=== PATIENT | male | born 1970 | race Caucasian/White ===

== ENCOUNTER 2017-09-06 12:14 | Emergency (ER) | payer OTHER ==
[~2017-09-06] VITALS: Ht 175.3 cm; Wt 129.3 kg
[~2017-09-06 12:14] MED LIST: ANTIPSYCHOTIC PO; Benadryl 50 mg50 MG PO; Cymbalta20 MG; Cymbalta60 MG PO; DESI25; DIVA500EC; DULOXETINE HCL60 MG PO; FENO54 PO; GUAN1 PO; HYDACE5 PO; HYDACE5325 PO; IBUP800 PO; LEVSOD75 PO; LORA1; LOVA20 PO; PANT40 PO; PERP2; PERP8 PO; PROM25 PO; THYR60 PO; TOPI25 PO; Ultram50 MG PO; ZIPR80; [UNRECOGNIZED DRUG - REMARK]
[2017-09-06] MEDS ORDERED: Advair Hfa 230-12 GM (12:41)
[2017-09-06] MEDS ORDERED: MOMENI (12:42)
[2017-09-06] MEDS ORDERED: Benztropine Mesy1 MG (12:42)
[2017-09-06] MEDS ORDERED: HYDPAM50 PO (12:42)
[2017-09-06] MEDS ORDERED: [UNRECOGNIZED DRUG - CODE] (12:42)
[2017-09-06] MEDS ORDERED: ALBU90OI61 INH (12:42)
[2017-09-06] MEDS ORDERED: BUPR75 (12:43)
[2017-09-06 13:05] LABS: BASOPHILS ABSOLUTE AUTO 0.03 K/mm3 (0.00-0.23); BASOPHILS PERCENT AUTO 0 % (0-2); EOSINOPHILS ABSOLUTE AUTO 0.12 K/mm3 (0.00-0.68); EOSINOPHILS PERCENT AUTO 2 % (0-6); Hematocrit 43.8 % (37.0-53.0); Hemoglobin 14.7 g/dL (13.5-17.5); IMMATURE GRAN ABSOLUTE AUTO 0.01 K/mm3 (0.00-0.10); IMMATURE GRAN PERCENT AUTO 0 % (0-1); LYMPHOCYTES ABSOLUTE AUTO 2.02 K/mm3 (0.84-5.20); LYMPHOCYTES PERCENT AUTO 27 % (21-46); MONOCYTES ABSOLUTE AUTO 0.63 K/mm3 (0.16-1.47); MONOCYTES PERCENT AUTO 8 % (4-13); Mean Corpuscular HGB 30.5 pg (26.0-34.0); Mean Corpuscular HGB Conc 33.6 g/dL (31.5-36.5); Mean Corpuscular Volume 91 fL (80-100); NEUTROPHILS ABSOLUTE AUTO 4.73 K/mm3 (1.96-9.15); NEUTROPHILS PERCENT AUTO 63 % (41-73); Platelet Count 288 K/mm3 (150-400); RDW Standard Deviation 43.2 fL (35.1-46.3); Red Blood Cell Count 4.82 M/mm3 (4.30-5.90); White Blood Cell Count 7.54 K/mm3 (4.00-11.30)
[2017-09-06 13:25] LABS: Alanine Aminotransfer (ALT/SGP 22 U/L (12-78); Albumin, Blood 3.4 g/dL (3.4-5.0); Albumin/Globulin Ratio 0.8 (0.8-1.8); Alk Phos 64 U/L (50-136); Anion Gap 6 mmol/L (6-16); Aspartate Aminotrans (AST/SGOT 18 U/L (12-37); Bilirubin, Total 0.6 mg/dL (0.1-1.0); Blood Urea Nitrogen 7 mg/dL (8-24); Bun/Creatinine Ratio 7.6 (12.0-20.0); CO2, Blood 25 mmol/L (21-32); Calcium, Blood 8.6 mg/dL (8.5-10.1); Chloride, Blood 109 mmol/L (98-108); Creatinine, Blood 0.92 mg/dL (0.60-1.20); Glomerular Filtration Rate >60 (60-); Glucose, Blood 107 mg/dL (70-99); Potassium, Blood 4.1 mmol/L (3.5-5.5); Sodium, Blood 140 mmol/L (136-145); Total Protein, Blood 7.4 g/dL (6.4-8.2)
[2017-09-06] MEDS ORDERED: Bactrim 400-801 EACH PO (13:30)
[2017-09-06] MEDS ORDERED: CEPH500 PO (13:30)
[2017-09-06] MEDS ORDERED: Mupirocin22 GM TOP (13:30)
== END 2017-09-06 13:48 | disposition home or self-care (01) ==
LOC: ER 12:14
PROVIDERS: Emergency Medicine
DX: L03.114 Cellulitis of left upper limb (principal); F20.9 Schizophrenia, unspecified; F17.210 Nicotine dependence, cigarettes, uncomplicated; Z88.5 Allergy status to narcotic agent; Z79.899 Other long term (current) drug therapy
CPT/HCPCS: 80053; 85025; 99283

== ENCOUNTER → 2017-09-07 | Outpatient (CLI) | payer OTHER ==
[~2017-09-07] MED LIST changes: +ALBU90OI61 INH; +Advair Hfa 230-12 GM; +BUPR75; +Bactrim 400-801 EACH PO; +Benztropine Mesy1 MG; +CEPH500 PO; +HYDPAM50 PO; +MOMENI; +Mupirocin22 GM TOP; +[UNRECOGNIZED DRUG - CODE]
== END ==
LOC: LAB SRC 11:36 → LAB SHORT 11:36
DX: L02.512 Cutaneous abscess of left hand (principal)
CPT/HCPCS: 87070; 87075; 87077; 87147; 87186; 87205

== ENCOUNTER 2018-10-14 06:17 | Observation (INO) | payer OTHER ==
[~2018-10-14] VITALS: Ht 177.8 cm; Wt 132.4 kg
[~2018-10-14 06:17] MED LIST changes: -Advair Hfa 230-12 GM; +Advair Hfa 230-12 GM PO; -BUPR75; +BUPR75 PO; -Benztropine Mesy1 MG; +Benztropine Mesy1 MG PO; +THIO PO; -[UNRECOGNIZED DRUG - CODE]
[2018-10-14] MEDS ORDERED: SAPHRIS10 MG SL (06:44)
[2018-10-14 07:36] LABS: BASOPHILS ABSOLUTE AUTO 0.04 K/mm3 (0.00-0.23); BASOPHILS PERCENT AUTO 1 % (0-2); EOSINOPHILS ABSOLUTE AUTO 0.11 K/mm3 (0.00-0.68); EOSINOPHILS PERCENT AUTO 2 % (0-6); Hematocrit 46.8 % (37.0-53.0); Hemoglobin 15.7 g/dL (13.5-17.5); IMMATURE GRAN ABSOLUTE AUTO 0.03 K/mm3 (0.00-0.10); IMMATURE GRAN PERCENT AUTO 0 % (0-1); LYMPHOCYTES ABSOLUTE AUTO 2.06 K/mm3 (0.84-5.20); LYMPHOCYTES PERCENT AUTO 30 % (21-46); MONOCYTES ABSOLUTE AUTO 0.53 K/mm3 (0.16-1.47); MONOCYTES PERCENT AUTO 8 % (4-13); Mean Corpuscular HGB 30.6 pg (26.0-34.0); Mean Corpuscular HGB Conc 33.5 g/dL (31.5-36.5); Mean Corpuscular Volume 91 fL (80-100); Mean Platelet Volume 10.1 fL (9.1-12.4); NEUTROPHILS ABSOLUTE AUTO 4.08 K/mm3 (1.96-9.15); NEUTROPHILS PERCENT AUTO 60 % (41-73); Platelet Count 262 K/mm3 (150-400); RDW Coefficient Variation 13.9 % (11.7-14.2); RDW Standard Deviation 46.7 fL (35.1-46.3); Red Blood Cell Count 5.13 M/mm3 (4.30-5.90); White Blood Cell Count 6.85 K/mm3 (4.00-11.30)
[2018-10-14 07:39] LABS: U Amphetamine Screen DETECTED; U Barbituate Screen Not Detected; U Benzodiazapine Screen Not Detected; U Buprenorphine Screen Not Detected; U Cannabinoids Screen DETECTED; U Cocaine Screen Not Detected; U Methadone Screen Not Detected; U Methamphetamine Screen DETECTED; U Opiates Screen Not Detected; U Oxycodone Screen Not Detected; U Phencyclidine Screen Not Detected; U Propoxyphene Screen Not Detected
[2018-10-14 07:59] LABS: Alanine Aminotransfer (ALT/SGP 34 U/L (12-78); Albumin/Globulin Ratio 1.1 (0.8-1.8); Alk Phos 59 U/L (50-136); Anion Gap 7 mmol/L (6-16); Aspartate Aminotrans (AST/SGOT 28 U/L (12-37); Bilirubin, Total 0.5 mg/dL (0.1-1.0); Blood Urea Nitrogen 9 mg/dL (8-24); Bun/Creatinine Ratio 10.4 (12.0-20.0); CO2, Blood 26 mmol/L (21-32); Calcium, Blood 8.6 mg/dL (8.5-10.1); Chloride, Blood 108 mmol/L (98-108); Creatinine, Blood 0.87 mg/dL (0.60-1.20); Ethanol (Alcohol), Blood, Med <3 mg/dL; Globulin, Blood 3.5 g/dL (2.2-4.0); Glomerular Filtration Rate >60 (60-); Glucose, Blood 105 mg/dL (70-99); Potassium, Blood 4.2 mmol/L (3.5-5.5); Salicylate 4.4 mg/dL (2.8-20.0); Sodium, Blood 141 mmol/L (136-145); Thyroxine (T4) 6.9 ug/dL (4.5-12.1); Total Protein, Blood 7.5 g/dL (6.4-8.2)
[2018-10-14 08:04] LABS: Acetaminophen, Random <2.0 ug/mL (10.0-30.0)
[2018-10-14] MEDS ORDERED: Hydroxyzine HCl50 MG PO (11:51)
[2018-10-14] MEDS ORDERED: Benztropine Me0.5 MG PO (14:40)
[2018-10-17] MEDS ORDERED: SAPHRIS10 MG SL (10:56)
== END 2018-10-17 11:05 | disposition home or self-care (01) ==
LOC: ER 06:17 → EOR 06:18
PROVIDERS: ADMIT Emergency Medicine
DX: F25.0 Schizoaffective disorder, bipolar type (principal); F29 Unspecified psychosis not due to a substance or known physiological condition; F28 Other psychotic disorder not due to a substance or known physiological condition; F15.129 Other stimulant abuse with intoxication, unspecified; F17.210 Nicotine dependence, cigarettes, uncomplicated; Z79.899 Other long term (current) drug therapy
CPT/HCPCS: 36415; 80053; 84436; 84443; 85025; 99285; G0378; G0480; Q0163; Q3014

== ENCOUNTER 2018-12-12 17:06 | Emergency (ER) | payer OTHER ==
[~2018-12-12] VITALS: Ht 175.3 cm; Wt 141.5 kg
[~2018-12-12 17:06] MED LIST changes: +Benztropine Me0.5 MG PO; +Hydroxyzine HCl50 MG PO; +SAPHRIS10 MG SL
[2018-12-12] MEDS ORDERED: CEPH500 PO (17:56)
[2018-12-13] MEDS ORDERED: CEPH500 PO (19:02)
== END 2018-12-12 18:00 | disposition home or self-care (01) ==
LOC: ER 17:06
DX: L03.114 Cellulitis of left upper limb (principal); Z88.5 Allergy status to narcotic agent; Z88.8 Allergy status to other drugs, medicaments and biological substances; Z79.899 Other long term (current) drug therapy; F20.9 Schizophrenia, unspecified; F17.210 Nicotine dependence, cigarettes, uncomplicated
CPT/HCPCS: 99283

== ENCOUNTER 2018-12-13 18:36 | Emergency (ER) | payer OTHER ==
[~2018-12-13] VITALS: Ht 175.3 cm; Wt 141.5 kg
[2018-12-13] MEDS ORDERED: CEPH500 PO (19:02)
== END 2018-12-13 19:32 | disposition home or self-care (01) ==
LOC: ER 18:36
DX: L03.114 Cellulitis of left upper limb (principal); Z88.5 Allergy status to narcotic agent; Z88.8 Allergy status to other drugs, medicaments and biological substances; Z79.899 Other long term (current) drug therapy; F20.9 Schizophrenia, unspecified; F17.210 Nicotine dependence, cigarettes, uncomplicated
CPT/HCPCS: 96372; 99284; J0696

== ENCOUNTER 2018-12-14 12:31 | Emergency (ER) | payer OTHER ==
[~2018-12-14] VITALS: Ht 170.2 cm; Wt 120.7 kg
== END 2018-12-14 13:55 | disposition home or self-care (01) ==
LOC: ER 12:31
DX: S90.822A Blister (nonthermal), left foot, initial encounter (principal); S90.821A Blister (nonthermal), right foot, initial encounter; M79.602 Pain in left arm; F23 Brief psychotic disorder; F43.10 Post-traumatic stress disorder, unspecified; F17.210 Nicotine dependence, cigarettes, uncomplicated; Z88.8 Allergy status to other drugs, medicaments and biological substances; Z91.048 Other nonmedicinal substance allergy status; Z79.899 Other long term (current) drug therapy
CPT/HCPCS: 99283

== ENCOUNTER 2018-12-15 19:50 | Emergency (ER) | payer OTHER ==
[~2018-12-15] VITALS: Ht 175.3 cm; Wt 117.9 kg
== END 2018-12-15 21:34 | disposition home or self-care (01) ==
LOC: ER 19:50
DX: S01.511A Laceration without foreign body of lip, initial encounter (principal); S50.812A Abrasion of left forearm, initial encounter; W50.0XXA Accidental hit or strike by another person, initial encounter; Z88.5 Allergy status to narcotic agent; Z88.8 Allergy status to other drugs, medicaments and biological substances; Z79.899 Other long term (current) drug therapy; F20.9 Schizophrenia, unspecified; F17.210 Nicotine dependence, cigarettes, uncomplicated
CPT/HCPCS: 99283

== ENCOUNTER 2019-01-06 00:45 | Emergency (ER) | payer OTHER ==
[~2019-01-06] VITALS: Ht 175.3 cm; Wt 127.0 kg
[2019-01-06] MEDS ORDERED: NAPR500 PO (03:49)
[2019-01-06] MEDS ORDERED: Prednisone20 MG PO (03:49)
== END 2019-01-06 03:55 | disposition home or self-care (01) ==
LOC: ER 00:45
DX: M10.9 Gout, unspecified (principal); F20.9 Schizophrenia, unspecified; F17.200 Nicotine dependence, unspecified, uncomplicated; Z88.5 Allergy status to narcotic agent; Z88.8 Allergy status to other drugs, medicaments and biological substances
CPT/HCPCS: 73630; 96372; 99283-25; J1885; J7512

== ENCOUNTER 2019-04-12 20:18 | Emergency (ER) | payer OTHER ==
[~2019-04-12] VITALS: Ht 175.3 cm; Wt 127.0 kg
[~2019-04-12 20:18] MED LIST changes: +NAPR500 PO; +Prednisone20 MG PO
[2019-04-12 21:07] LABS: BASOPHILS ABSOLUTE AUTO 0.03 K/mm3 (0.00-0.23); BASOPHILS PERCENT AUTO 1 % (0-2); EOSINOPHILS ABSOLUTE AUTO 0.14 K/mm3 (0.00-0.68); EOSINOPHILS PERCENT AUTO 3 % (0-6); Hematocrit 38.5 % (37.0-53.0); Hemoglobin 12.8 g/dL (13.5-17.5); IMMATURE GRAN ABSOLUTE AUTO 0.04 K/mm3 (0.00-0.10); IMMATURE GRAN PERCENT AUTO 1 % (0-1); LYMPHOCYTES ABSOLUTE AUTO 1.99 K/mm3 (0.84-5.20); LYMPHOCYTES PERCENT AUTO 38 % (21-46); MONOCYTES ABSOLUTE AUTO 0.42 K/mm3 (0.16-1.47); MONOCYTES PERCENT AUTO 8 % (4-13); Mean Corpuscular HGB 29.8 pg (26.0-34.0); Mean Corpuscular HGB Conc 33.2 g/dL (31.5-36.5); Mean Corpuscular Volume 90 fL (80-100); Mean Platelet Volume 11.4 fL (9.1-12.4); NEUTROPHILS ABSOLUTE AUTO 2.61 K/mm3 (1.96-9.15); NEUTROPHILS PERCENT AUTO 50 % (41-73); Platelet Count 216 K/mm3 (150-400); RDW Coefficient Variation 13.2 % (11.7-14.2); Red Blood Cell Count 4.29 M/mm3 (4.30-5.90); White Blood Cell Count 5.23 K/mm3 (4.00-11.30)
[2019-04-12 21:28] LABS: Alanine Aminotransfer (ALT/SGP 47 U/L (12-78); Albumin, Blood 3.5 g/dL (3.4-5.0); Alk Phos 58 U/L (50-136); Anion Gap 8 mmol/L (6-16); Aspartate Aminotrans (AST/SGOT 36 U/L (12-37); Bilirubin, Total 0.1 mg/dL (0.1-1.0); Blood Urea Nitrogen 12 mg/dL (8-24); Bun/Creatinine Ratio 13.1 (12.0-20.0); CO2, Blood 25 mmol/L (21-32); Calcium, Blood 8.4 mg/dL (8.5-10.1); Chloride, Blood 108 mmol/L (98-108); Creatinine, Blood 0.92 mg/dL (0.60-1.20); Ethanol (Alcohol), Blood, Med <3 mg/dL; Globulin, Blood 3.4 g/dL (2.2-4.0); Glomerular Filtration Rate >60 (60-); Glucose, Blood 174 mg/dL (70-99); Potassium, Blood 3.9 mmol/L (3.5-5.5); Salicylate <1.7 mg/dL (2.8-20.0); Sodium, Blood 141 mmol/L (136-145); Total Protein, Blood 6.9 g/dL (6.4-8.2)
[2019-04-12 21:30] LABS: Acetaminophen, Random <2.0 ug/mL (10.0-30.0)
[2019-04-12 22:57] LABS: Source, Urine Clean Catch
[2019-04-12 23:13] LABS: Appearance, Urine Clear (Clear); Bilirubin, Urine Neg (Neg); Blood, Urine Neg (Neg); Color, Urine Yellow (P-Yellow); Glucose Qualitative, Urine 2+ (Neg); Ketones, Urine Neg (Neg); Leukocyte Esterase, Urine Neg (Neg); Nitrite, Urine Neg (Neg); Protein, Urine Neg (Neg); Urobilinogen, Urine NORM (Normal)
[2019-04-12 23:54] LABS: U Amphetamine Screen Not Detected; U Barbituate Screen Not Detected; U Benzodiazapine Screen Not Detected; U Buprenorphine Screen Not Detected; U Cannabinoids Screen Not Detected; U Cocaine Screen Not Detected; U Methadone Screen Not Detected; U Methamphetamine Screen Not Detected; U Opiates Screen Not Detected; U Oxycodone Screen Not Detected; U Phencyclidine Screen Not Detected; U Propoxyphene Screen Not Detected
[2019-04-13] MEDS ORDERED: LORAZEPAM0.5 MG PO (02:03)
== END 2019-04-13 02:15 | disposition home or self-care (01) ==
LOC: ER 20:18
PROVIDERS: Physician Assistant
DX: F22 Delusional disorders (principal); R45.1 Restlessness and agitation; F20.9 Schizophrenia, unspecified; F17.210 Nicotine dependence, cigarettes, uncomplicated
CPT/HCPCS: 36415; 80053; 81003; 85025; 96372; 99285-25; G0480; J2060

== ENCOUNTER 2019-04-25 15:25 | Observation (INO) | payer OTHER ==
[~2019-04-25] VITALS: Ht 175.3 cm; Wt 122.5 kg
[~2019-04-25 15:25] MED LIST changes: +LORAZEPAM0.5 MG PO
[2019-04-25] MEDS ORDERED: SAPHRIS5 MG SL (15:39)
[2019-04-25] MEDS ORDERED: QUETIAPINE FUM200 MG PO (15:41)
[2019-04-25] MEDS ORDERED: Benztropine Me0.5 MG (15:41)
[2019-04-25 16:43] LABS: BASOPHILS ABSOLUTE AUTO 0.04 K/mm3 (0.00-0.23); BASOPHILS PERCENT AUTO 1 % (0-2); EOSINOPHILS ABSOLUTE AUTO 0.15 K/mm3 (0.00-0.68); EOSINOPHILS PERCENT AUTO 2 % (0-6); Hematocrit 41.7 % (37.0-53.0); Hemoglobin 13.4 g/dL (13.5-17.5); IMMATURE GRAN ABSOLUTE AUTO 0.02 K/mm3 (0.00-0.10); IMMATURE GRAN PERCENT AUTO 0 % (0-1); LYMPHOCYTES PERCENT AUTO 39 % (21-46); MONOCYTES ABSOLUTE AUTO 0.49 K/mm3 (0.16-1.47); MONOCYTES PERCENT AUTO 7 % (4-13); Mean Corpuscular HGB 29.8 pg (26.0-34.0); Mean Corpuscular HGB Conc 32.1 g/dL (31.5-36.5); Mean Corpuscular Volume 93 fL (80-100); Mean Platelet Volume 10.4 fL (9.1-12.4); NEUTROPHILS ABSOLUTE AUTO 3.32 K/mm3 (1.96-9.15); NEUTROPHILS PERCENT AUTO 50 % (41-73); Platelet Count 319 K/mm3 (150-400); RDW Coefficient Variation 13.8 % (11.7-14.2); RDW Standard Deviation 46.6 fL (35.1-46.3); White Blood Cell Count 6.62 K/mm3 (4.00-11.30)
[2019-04-25 17:01] LABS: Anion Gap 4 mmol/L (6-16); Blood Urea Nitrogen 16 mg/dL (8-24); CO2, Blood 26 mmol/L (21-32); Calcium, Blood 8.5 mg/dL (8.5-10.1); Chloride, Blood 108 mmol/L (98-108); Creatinine, Blood 0.89 mg/dL (0.60-1.20); Ethanol (Alcohol), Blood, Med <3 mg/dL; Glomerular Filtration Rate >60 (60-); Glucose, Blood 103 mg/dL (70-99); Potassium, Blood 4.6 mmol/L (3.5-5.5); Salicylate 1.8 mg/dL (2.8-20.0); Sodium, Blood 138 mmol/L (136-145)
[2019-04-25 17:10] LABS: Acetaminophen, Random <2.0 ug/mL (10.0-30.0)
[2019-04-25 17:19] LABS: U Amphetamine Screen Not Detected; U Barbituate Screen Not Detected; U Benzodiazapine Screen Not Detected; U Buprenorphine Screen Not Detected; U Cannabinoids Screen Not Detected; U Cocaine Screen Not Detected; U Methadone Screen Not Detected; U Methamphetamine Screen DETECTED; U Opiates Screen Not Detected; U Oxycodone Screen Not Detected; U Phencyclidine Screen Not Detected; U Propoxyphene Screen Not Detected
== END 2019-04-26 09:40 | disposition home or self-care (01) ==
LOC: ER 15:25 → EOR 15:26
PROVIDERS: Physician Assistant; ADMIT Emergency Medicine
DX: F22 Delusional disorders (principal); F20.9 Schizophrenia, unspecified; F43.9 Reaction to severe stress, unspecified; F15.10 Other stimulant abuse, uncomplicated; F43.10 Post-traumatic stress disorder, unspecified; M10.9 Gout, unspecified; F17.200 Nicotine dependence, unspecified, uncomplicated; Z88.5 Allergy status to narcotic agent; Z88.8 Allergy status to other drugs, medicaments and biological substances; Z79.899 Other long term (current) drug therapy
CPT/HCPCS: 80048; 85025; 96372; 99285-25; G0378; G0480; J1630; Q0163

== ENCOUNTER 2019-11-26 05:36 | Emergency (ER) | payer OTHER ==
[~2019-11-26] VITALS: Ht 175.3 cm; Wt 141.5 kg
[~2019-11-26 05:36] MED LIST changes: +Benztropine Me0.5 MG; +QUETIAPINE FUM200 MG PO; +SAPHRIS5 MG SL
== END 2019-11-26 06:44 | disposition home or self-care (01) ==
LOC: ER 05:36
DX: R45.1 Restlessness and agitation (principal); F20.9 Schizophrenia, unspecified; Z88.5 Allergy status to narcotic agent; Z88.8 Allergy status to other drugs, medicaments and biological substances; Z79.899 Other long term (current) drug therapy; F17.210 Nicotine dependence, cigarettes, uncomplicated
CPT/HCPCS: 99284

== ENCOUNTER 2020-01-10 05:18 | Emergency (ER) | payer OTHER ==
[~2020-01-10] VITALS: Ht 175.3 cm; Wt 156.5 kg
[2020-01-10] MEDS ORDERED: PALI3TAB (05:38)
[2020-01-10] MEDS ORDERED: INVEGA SUS39 MG/0.21 (05:39)
== END 2020-01-10 06:32 | disposition home or self-care (01) ==
LOC: ER 05:18
DX: S16.1XXA Strain of muscle, fascia and tendon at neck level, initial encounter (principal); M54.6 Pain in thoracic spine; R51 Headache; F20.0 Paranoid schizophrenia; F17.210 Nicotine dependence, cigarettes, uncomplicated; Z88.5 Allergy status to narcotic agent; Z88.8 Allergy status to other drugs, medicaments and biological substances; Z79.899 Other long term (current) drug therapy; X58.XXXA Exposure to other specified factors, initial encounter
CPT/HCPCS: 99283

== ENCOUNTER 2020-01-11 10:30 | Emergency (ER) | payer OTHER ==
[~2020-01-11] VITALS: Ht 172.7 cm; Wt 124.7 kg
[~2020-01-11 10:30] MED LIST changes: +INVEGA SUS39 MG/0.21; +PALI3TAB
== END 2020-01-11 11:56 | disposition left against medical advice (07) ==
LOC: ER 10:30
DX: G89.29 Other chronic pain (principal); M54.2 Cervicalgia; F20.9 Schizophrenia, unspecified; F17.210 Nicotine dependence, cigarettes, uncomplicated; Z88.5 Allergy status to narcotic agent; Z88.8 Allergy status to other drugs, medicaments and biological substances; Z79.899 Other long term (current) drug therapy; Z53.20 Procedure and treatment not carried out because of patient's decision for unspecified reasons
CPT/HCPCS: 99283

== ENCOUNTER 2020-01-21 21:43 | Observation (INO) | payer OTHER ==
[~2020-01-21] VITALS: Ht 175.3 cm; Wt 156.5 kg
[2020-01-22 00:20] LABS: BASOPHILS ABSOLUTE AUTO 0.04 K/mm3 (0.00-0.23); BASOPHILS PERCENT AUTO 1 % (0-2); EOSINOPHILS ABSOLUTE AUTO 0.11 K/mm3 (0.00-0.68); EOSINOPHILS PERCENT AUTO 2 % (0-6); Hematocrit 40.9 % (37.0-53.0); Hemoglobin 13.6 g/dL (13.5-17.5); IMMATURE GRAN ABSOLUTE AUTO 0.02 K/mm3 (0.00-0.10); IMMATURE GRAN PERCENT AUTO 0 % (0-1); LYMPHOCYTES ABSOLUTE AUTO 1.86 K/mm3 (0.84-5.20); LYMPHOCYTES PERCENT AUTO 38 % (21-46); MONOCYTES ABSOLUTE AUTO 0.52 K/mm3 (0.16-1.47); MONOCYTES PERCENT AUTO 11 % (4-13); Mean Corpuscular HGB 30.3 pg (26.0-34.0); Mean Corpuscular HGB Conc 33.3 g/dL (31.5-36.5); Mean Corpuscular Volume 91 fL (80-100); Mean Platelet Volume 10.6 fL (9.1-12.4); NEUTROPHILS PERCENT AUTO 47 % (41-73); Platelet Count 220 K/mm3 (150-400); RDW Coefficient Variation 13.2 % (11.7-14.2); RDW Standard Deviation 44.2 fL (35.1-46.3); Red Blood Cell Count 4.49 M/mm3 (4.30-5.90); White Blood Cell Count 4.85 K/mm3 (4.00-11.30)
[2020-01-22 00:40] LABS: Acetaminophen, Random <2.0 ug/mL (10.0-30.0); Alanine Aminotransfer (ALT/SGP 30 U/L (12-78); Albumin, Blood 3.3 g/dL (3.4-5.0); Albumin/Globulin Ratio 1.1 (0.8-1.8); Alk Phos 48 U/L (50-136); Anion Gap 5 mmol/L (6-16); Aspartate Aminotrans (AST/SGOT 19 U/L (12-37); Bilirubin, Total 0.2 mg/dL (0.1-1.0); Blood Urea Nitrogen 12 mg/dL (8-24); Bun/Creatinine Ratio 12.2 (12.0-20.0); CO2, Blood 29 mmol/L (21-32); Calcium, Blood 8.6 mg/dL (8.5-10.1); Chloride, Blood 107 mmol/L (98-108); Creatinine, Blood 0.98 mg/dL (0.60-1.20); Ethanol (Alcohol), Blood, Med <3 mg/dL; Globulin, Blood 3.1 g/dL (2.2-4.0); Glomerular Filtration Rate >60 (60-); Glucose, Blood 171 mg/dL (70-99); Potassium, Blood 4.2 mmol/L (3.5-5.5); Salicylate 3.9 mg/dL (2.8-20.0); Sodium, Blood 141 mmol/L (136-145); Total Protein, Blood 6.4 g/dL (6.4-8.2)
[2020-01-22 04:32] LABS: Source, Urine Voided
[2020-01-22 04:51] LABS: Appearance, Urine Clear (Clear); Bilirubin, Urine Neg (Neg); Blood, Urine Neg (Neg); Color, Urine Yellow (P-Yellow); Glucose Qualitative, Urine Neg (Neg); Ketones, Urine Neg (Neg); Leukocyte Esterase, Urine Neg (Neg); Nitrite, Urine Neg (Neg); Protein, Urine Neg (Neg); Urobilinogen, Urine NORM (Normal)
[2020-01-22 05:06] LABS: U Amphetamine Screen Not Detected; U Barbituate Screen Not Detected; U Benzodiazapine Screen DETECTED; U Buprenorphine Screen Not Detected; U Cannabinoids Screen Not Detected; U Cocaine Screen Not Detected; U Methadone Screen Not Detected; U Methamphetamine Screen Not Detected; U Opiates Screen Not Detected; U Oxycodone Screen Not Detected; U Phencyclidine Screen Not Detected; U Propoxyphene Screen Not Detected
[2020-01-22] MEDS ORDERED: PALI6TA PO (13:10)
[2020-01-22] MEDS ORDERED: RISP2 PO (13:11)
[2020-01-22] MEDS ORDERED: Seroquel Xr50 MG PO (13:11)
[2020-01-22] MEDS ORDERED: HYDPAM50 PO (13:11)
[2020-01-22] MEDS ORDERED: NASONEX17 G1 INH (13:12)
[2020-01-22] MEDS ORDERED: INVEGA SUS234 MG/1.1 IM (13:12)
[2020-01-22] MEDS ORDERED: FLUT1DIS2 INH (13:13)
[2020-01-22] MEDS ORDERED: PROAIR RESPICL90 MCG INH (13:13)
== END 2020-01-23 00:45 ==
LOC: ER 21:43 → EOR 21:44
PROVIDERS: ADMIT Emergency Medicine
DX: F23 Brief psychotic disorder (principal); F15.10 Other stimulant abuse, uncomplicated; F17.210 Nicotine dependence, cigarettes, uncomplicated; Z20.828 Contact with and (suspected) exposure to other viral communicable diseases
CPT/HCPCS: 36415; 80053; 81003; 85025; 96372; 99285-25; G0378; G0480; J1200; J1630; J2060; U0002

== ENCOUNTER 2020-02-07 21:11 | Emergency (ER) | payer OTHER ==
[~2020-02-07] VITALS: Ht 175.3 cm; Wt 156.5 kg
[~2020-02-07 21:11] MED LIST changes: +FLUT1DIS2 INH; +INVEGA SUS234 MG/1.1 IM; +NASONEX17 G1 INH; +PALI6TA PO; +PROAIR RESPICL90 MCG INH; +RISP2 PO; +Seroquel Xr50 MG PO
[2020-02-08 03:59] LABS: BASOPHILS ABSOLUTE AUTO 0.04 K/mm3 (0.00-0.23); BASOPHILS PERCENT AUTO 1 % (0-2); EOSINOPHILS ABSOLUTE AUTO 0.13 K/mm3 (0.00-0.68); EOSINOPHILS PERCENT AUTO 2 % (0-6); Hematocrit 43.2 % (37.0-53.0); Hemoglobin 14.5 g/dL (13.5-17.5); IMMATURE GRAN ABSOLUTE AUTO 0.01 K/mm3 (0.00-0.10); IMMATURE GRAN PERCENT AUTO 0 % (0-1); LYMPHOCYTES ABSOLUTE AUTO 1.88 K/mm3 (0.84-5.20); LYMPHOCYTES PERCENT AUTO 33 % (21-46); MONOCYTES ABSOLUTE AUTO 0.39 K/mm3 (0.16-1.47); MONOCYTES PERCENT AUTO 7 % (4-13); Mean Corpuscular HGB 30.1 pg (26.0-34.0); Mean Corpuscular HGB Conc 33.6 g/dL (31.5-36.5); Mean Corpuscular Volume 90 fL (80-100); NEUTROPHILS ABSOLUTE AUTO 3.32 K/mm3 (1.96-9.15); NEUTROPHILS PERCENT AUTO 57 % (41-73); Platelet Count 267 K/mm3 (150-400); RDW Coefficient Variation 12.6 % (11.7-14.2); RDW Standard Deviation 41.5 fL (35.1-46.3); Red Blood Cell Count 4.82 M/mm3 (4.30-5.90); White Blood Cell Count 5.77 K/mm3 (4.00-11.30)
[2020-02-08 04:17] LABS: Alanine Aminotransfer (ALT/SGP 37 U/L (12-78); Albumin, Blood 3.5 g/dL (3.4-5.0); Albumin/Globulin Ratio 1.1 (0.8-1.8); Alk Phos 48 U/L (50-136); Anion Gap 6 mmol/L (6-16); Aspartate Aminotrans (AST/SGOT 12 U/L (12-37); Bilirubin, Total 0.3 mg/dL (0.1-1.0); Blood Urea Nitrogen 10 mg/dL (8-24); Bun/Creatinine Ratio 11.2 (12.0-20.0); CO2, Blood 30 mmol/L (21-32); Calcium, Blood 8.6 mg/dL (8.5-10.1); Chloride, Blood 105 mmol/L (98-108); Creatinine, Blood 0.89 mg/dL (0.60-1.20); Ethanol (Alcohol), Blood, Med <3 mg/dL; Globulin, Blood 3.2 g/dL (2.2-4.0); Glomerular Filtration Rate >60 (60-); Glucose, Blood 113 mg/dL (70-99); Potassium, Blood 3.9 mmol/L (3.5-5.5); Salicylate 3.3 mg/dL (2.8-20.0); Sodium, Blood 141 mmol/L (136-145); Total Protein, Blood 6.7 g/dL (6.4-8.2)
[2020-02-08 04:23] LABS: Acetaminophen, Random <2.0 ug/mL (10.0-30.0)
== END 2020-02-08 05:32 | disposition home or self-care (01) ==
LOC: ER 21:11
PROVIDERS: Student in an Organized Health Care Education/Training Program
DX: F20.9 Schizophrenia, unspecified (principal); F31.9 Bipolar disorder, unspecified; F17.210 Nicotine dependence, cigarettes, uncomplicated; Z79.899 Other long term (current) drug therapy; Z88.5 Allergy status to narcotic agent; Z88.8 Allergy status to other drugs, medicaments and biological substances
CPT/HCPCS: 36415; 80053; 85025; 99284; G0480

== ENCOUNTER 2020-02-21 12:34 | Emergency (ER) | payer OTHER ==
[~2020-02-21] VITALS: Ht 175.3 cm; Wt 156.5 kg
[2020-02-21] MEDS ORDERED: METF500 PO (17:04)
[2020-02-21] MEDS ORDERED: LIDO700A20 TOP (17:09)
[2020-02-21] MEDS ORDERED: Monodox100 MG PO (17:09)
== END 2020-02-21 17:52 | disposition home or self-care (01) ==
LOC: ER 12:34
DX: L03.116 Cellulitis of left lower limb (principal); Z79.84 Long term (current) use of oral hypoglycemic drugs; Z79.899 Other long term (current) drug therapy
CPT/HCPCS: 99282

== ENCOUNTER 2020-02-28 18:20 | Emergency (ER) | payer OTHER ==
[~2020-02-28] VITALS: Ht 175.3 cm; Wt 111.1 kg
[~2020-02-28 18:20] MED LIST changes: +LIDO700A20 TOP; +METF500 PO; +Monodox100 MG PO
[2020-02-28 19:19] LABS: Troponin I <0.015 ng/mL (0.000-0.040)
[2020-02-28 19:20] LABS: Alanine Aminotransfer (ALT/SGP 34 U/L (12-78); Albumin, Blood 3.4 g/dL (3.4-5.0); Albumin/Globulin Ratio 1.1 (0.8-1.8); Alk Phos 49 U/L (50-136); Anion Gap 5 mmol/L (6-16); Aspartate Aminotrans (AST/SGOT 21 U/L (12-37); Bilirubin, Total 0.2 mg/dL (0.1-1.0); Blood Urea Nitrogen 15 mg/dL (8-24); Bun/Creatinine Ratio 16.5 (12.0-20.0); CO2, Blood 29 mmol/L (21-32); Calcium, Blood 8.7 mg/dL (8.5-10.1); Chloride, Blood 107 mmol/L (98-108); Creatinine, Blood 0.91 mg/dL (0.60-1.20); Globulin, Blood 3.1 g/dL (2.2-4.0); Glomerular Filtration Rate >60 (60-); Glucose, Blood 220 mg/dL (70-99); Potassium, Blood 4.1 mmol/L (3.5-5.5); Sodium, Blood 141 mmol/L (136-145); Total Protein, Blood 6.5 g/dL (6.4-8.2)
[2020-02-28 19:28] LABS: BASOPHILS ABSOLUTE AUTO 0.03 K/mm3 (0.00-0.23); BASOPHILS PERCENT AUTO 1 % (0-2); EOSINOPHILS ABSOLUTE AUTO 0.14 K/mm3 (0.00-0.68); EOSINOPHILS PERCENT AUTO 3 % (0-6); Hematocrit 39.7 % (37.0-53.0); Hemoglobin 13.3 g/dL (13.5-17.5); IMMATURE GRAN ABSOLUTE AUTO 0.03 K/mm3 (0.00-0.10); IMMATURE GRAN PERCENT AUTO 1 % (0-1); LYMPHOCYTES ABSOLUTE AUTO 1.72 K/mm3 (0.84-5.20); LYMPHOCYTES PERCENT AUTO 31 % (21-46); MONOCYTES ABSOLUTE AUTO 0.38 K/mm3 (0.16-1.47); MONOCYTES PERCENT AUTO 7 % (4-13); Mean Corpuscular HGB 30.2 pg (26.0-34.0); Mean Corpuscular HGB Conc 33.5 g/dL (31.5-36.5); Mean Corpuscular Volume 90 fL (80-100); Mean Platelet Volume 10.5 fL (9.1-12.4); NEUTROPHILS ABSOLUTE AUTO 3.34 K/mm3 (1.96-9.15); NEUTROPHILS PERCENT AUTO 59 % (41-73); Platelet Count 251 K/mm3 (150-400); RDW Coefficient Variation 12.5 % (11.7-14.2); RDW Standard Deviation 41.1 fL (35.1-46.3); White Blood Cell Count 5.64 K/mm3 (4.00-11.30)
== END 2020-02-28 20:05 | disposition home or self-care (01) ==
LOC: ER 18:20
PROVIDERS: Emergency Medicine
DX: F22 Delusional disorders (principal); F29 Unspecified psychosis not due to a substance or known physiological condition; F15.10 Other stimulant abuse, uncomplicated; E66.01 Morbid (severe) obesity due to excess calories; F17.210 Nicotine dependence, cigarettes, uncomplicated; Z88.5 Allergy status to narcotic agent; Z88.8 Allergy status to other drugs, medicaments and biological substances; Z79.84 Long term (current) use of oral hypoglycemic drugs; Z79.899 Other long term (current) drug therapy; Z68.36 Body mass index [BMI] 36.0-36.9, adult
CPT/HCPCS: 36415; 80053; 84484; 85025; 93005; 93010; 99284-25

== ENCOUNTER 2020-03-11 12:33 | Observation (INO) | payer OTHER ==
[~2020-03-11] VITALS: Ht 175.3 cm; Wt 156.5 kg
[~2020-03-11 12:33] MED LIST changes: -METF500 PO
[2020-03-11 21:11] LABS: BASOPHILS ABSOLUTE AUTO 0.03 K/mm3 (0.00-0.23); BASOPHILS PERCENT AUTO 1 % (0-2); EOSINOPHILS ABSOLUTE AUTO 0.15 K/mm3 (0.00-0.68); EOSINOPHILS PERCENT AUTO 3 % (0-6); Hematocrit 41.3 % (37.0-53.0); Hemoglobin 14.1 g/dL (13.5-17.5); IMMATURE GRAN ABSOLUTE AUTO 0.02 K/mm3 (0.00-0.10); IMMATURE GRAN PERCENT AUTO 0 % (0-1); LYMPHOCYTES ABSOLUTE AUTO 2.12 K/mm3 (0.84-5.20); LYMPHOCYTES PERCENT AUTO 39 % (21-46); MONOCYTES PERCENT AUTO 9 % (4-13); Mean Corpuscular HGB Conc 34.1 g/dL (31.5-36.5); Mean Corpuscular Volume 88 fL (80-100); Mean Platelet Volume 10.3 fL (9.1-12.4); NEUTROPHILS ABSOLUTE AUTO 2.65 K/mm3 (1.96-9.15); NEUTROPHILS PERCENT AUTO 49 % (41-73); Platelet Count 273 K/mm3 (150-400); RDW Coefficient Variation 12.8 % (11.7-14.2); RDW Standard Deviation 41.7 fL (35.1-46.3); White Blood Cell Count 5.47 K/mm3 (4.00-11.30)
[2020-03-11 21:32] LABS: Acetaminophen, Random <2.0 ug/mL (10.0-30.0); Alanine Aminotransfer (ALT/SGP 38 U/L (12-78); Albumin, Blood 3.9 g/dL (3.4-5.0); Albumin/Globulin Ratio 1.3 (0.8-1.8); Alk Phos 47 U/L (50-136); Anion Gap 6 mmol/L (6-16); Aspartate Aminotrans (AST/SGOT 27 U/L (12-37); Bilirubin, Total 0.5 mg/dL (0.1-1.0); Blood Urea Nitrogen 10 mg/dL (8-24); CO2, Blood 27 mmol/L (21-32); Calcium, Blood 8.6 mg/dL (8.5-10.1); Chloride, Blood 109 mmol/L (98-108); Creatinine, Blood 0.91 mg/dL (0.60-1.20); Ethanol (Alcohol), Blood, Med <3 mg/dL; Glomerular Filtration Rate >60 (60-); Glucose, Blood 113 mg/dL (70-99); Potassium, Blood 3.9 mmol/L (3.5-5.5); Salicylate 4.3 mg/dL (2.8-20.0); Sodium, Blood 142 mmol/L (136-145); Total Protein, Blood 6.9 g/dL (6.4-8.2)
[2020-03-11] MEDS ORDERED: METF500 PO (22:48)
[2020-03-12 04:18] LABS: Source, Urine Clean Catch
[2020-03-12 04:20] LABS: Bilirubin, Urine Neg (Neg); Blood, Urine Neg (Neg); Glucose Qualitative, Urine Neg (Neg); Ketones, Urine Neg (Neg); Leukocyte Esterase, Urine 1+ (Neg); Nitrite, Urine Neg (Neg); Protein, Urine 1+ (Neg); Specific Gravity, Urine 1.025 (1.003-1.022); Urobilinogen, Urine NORM (Normal)
[2020-03-12 04:34] LABS: U Amphetamine Screen DETECTED; U Barbituate Screen Not Detected; U Benzodiazapine Screen Not Detected; U Buprenorphine Screen Not Detected; U Cannabinoids Screen DETECTED; U Cocaine Screen Not Detected; U Methadone Screen Not Detected; U Methamphetamine Screen DETECTED; U Opiates Screen Not Detected; U Oxycodone Screen Not Detected; U Phencyclidine Screen Not Detected; U Propoxyphene Screen Not Detected
[2020-03-12 04:38] LABS: Appearance, Urine Clear (Clear); Color, Urine Yellow (P-Yellow)
[2020-03-12 04:39] LABS: Bacteria Few /hpf; Mucus Light (0-Heavy); Red Blood Cells, Urine Rare /hpf (0-2); Squamous Epithelial Cells Rare /hpf (Few)
== END 2020-03-12 13:40 | disposition home or self-care (01) ==
LOC: ER 12:33 → EOR 22:40
PROVIDERS: ADMIT Emergency Medicine
DX: F31.9 Bipolar disorder, unspecified (principal); F20.0 Paranoid schizophrenia; Z88.5 Allergy status to narcotic agent; Z88.8 Allergy status to other drugs, medicaments and biological substances; F17.210 Nicotine dependence, cigarettes, uncomplicated; Z79.899 Other long term (current) drug therapy
CPT/HCPCS: 36415; 80053; 81001; 85025; 87077; 87086; 87186; 99285; G0378; G0480; Q3014

== ENCOUNTER 2020-03-12 18:20 | Emergency (ER) | payer OTHER ==
[~2020-03-12] VITALS: Ht 175.3 cm; Wt 156.5 kg
[~2020-03-12 18:20] MED LIST changes: +METF500 PO
== END 2020-03-12 20:00 | disposition home or self-care (01) ==
LOC: ER 18:20
DX: F20.9 Schizophrenia, unspecified (principal); F31.9 Bipolar disorder, unspecified; F17.210 Nicotine dependence, cigarettes, uncomplicated; Z59.0 Homelessness; Z88.5 Allergy status to narcotic agent; Z88.8 Allergy status to other drugs, medicaments and biological substances
CPT/HCPCS: 99284

== ENCOUNTER 2020-06-01 06:34 | Observation (INO) | payer OTHER ==
[~2020-06-01] VITALS: Ht 175.3 cm; Wt 156.5 kg
[2020-06-01 08:27] LABS: Source, Urine Clean Catch
[2020-06-01 08:31] LABS: Appearance, Urine Clear (Clear); Bilirubin, Urine Neg (Neg); Blood, Urine Neg (Neg); Color, Urine Yellow (P-Yellow); Glucose Qualitative, Urine 4+ (Neg); Ketones, Urine Neg (Neg); Leukocyte Esterase, Urine Neg (Neg); Nitrite, Urine Neg (Neg); Protein, Urine Neg (Neg); Specific Gravity, Urine 1.015 (1.003-1.022); Urobilinogen, Urine NORM (Normal)
[2020-06-01 08:32] LABS: U Amphetamine Screen DETECTED; U Barbituate Screen Not Detected; U Benzodiazapine Screen Not Detected; U Buprenorphine Screen Not Detected; U Cannabinoids Screen Not Detected; U Cocaine Screen Not Detected; U Methadone Screen Not Detected; U Methamphetamine Screen DETECTED; U Opiates Screen Not Detected; U Oxycodone Screen Not Detected; U Phencyclidine Screen Not Detected; U Propoxyphene Screen Not Detected
[2020-06-01 08:48] LABS: BASOPHILS ABSOLUTE AUTO 0.04 K/mm3 (0.00-0.23); BASOPHILS PERCENT AUTO 1 % (0-2); EOSINOPHILS ABSOLUTE AUTO 0.09 K/mm3 (0.00-0.68); EOSINOPHILS PERCENT AUTO 2 % (0-6); Hematocrit 44.2 % (37.0-53.0); Hemoglobin 15.3 g/dL (13.5-17.5); IMMATURE GRAN ABSOLUTE AUTO 0.05 K/mm3 (0.00-0.10); IMMATURE GRAN PERCENT AUTO 1 % (0-1); LYMPHOCYTES ABSOLUTE AUTO 3.22 K/mm3 (0.84-5.20); LYMPHOCYTES PERCENT AUTO 53 % (21-46); MONOCYTES ABSOLUTE AUTO 0.76 K/mm3 (0.16-1.47); MONOCYTES PERCENT AUTO 13 % (4-13); Mean Corpuscular HGB 30.4 pg (26.0-34.0); Mean Corpuscular HGB Conc 34.6 g/dL (31.5-36.5); Mean Corpuscular Volume 88 fL (80-100); Mean Platelet Volume 10.1 fL (9.1-12.4); NEUTROPHILS ABSOLUTE AUTO 1.91 K/mm3 (1.96-9.15); NEUTROPHILS PERCENT AUTO 32 % (41-73); Platelet Count 248 K/mm3 (150-400); RDW Standard Deviation 38.9 fL (35.1-46.3); Red Blood Cell Count 5.03 M/mm3 (4.30-5.90); White Blood Cell Count 6.07 K/mm3 (4.00-11.30)
[2020-06-01 09:11] LABS: Alanine Aminotransfer (ALT/SGP 55 U/L (12-78); Albumin, Blood 3.5 g/dL (3.4-5.0); Albumin/Globulin Ratio 0.9 (0.8-1.8); Alk Phos 68 U/L (50-136); Anion Gap 9 mmol/L (6-16); Aspartate Aminotrans (AST/SGOT 25 U/L (12-37); Bilirubin, Total 0.3 mg/dL (0.1-1.0); Blood Urea Nitrogen 10 mg/dL (8-24); Bun/Creatinine Ratio 11.6 (12.0-20.0); CO2, Blood 26 mmol/L (21-32); Calcium, Blood 8.2 mg/dL (8.5-10.1); Chloride, Blood 103 mmol/L (98-108); Creatinine, Blood 0.86 mg/dL (0.60-1.20); Ethanol (Alcohol), Blood, Med <3 mg/dL; Globulin, Blood 3.7 g/dL (2.2-4.0); Glomerular Filtration Rate >60 (60-); Glucose, Blood 226 mg/dL (70-99); Potassium, Blood 3.8 mmol/L (3.5-5.5); Salicylate 4.6 mg/dL (2.8-20.0); Sodium, Blood 138 mmol/L (136-145); Thyroxine (T4) 6.4 ug/dL (4.5-12.1); Total Protein, Blood 7.2 g/dL (6.4-8.2)
[2020-06-01 09:23] LABS: Acetaminophen, Random <2.0 ug/mL (10.0-30.0)
[2020-06-01 09:57] LABS: Influenza A, PCR Negative (NEGATIVE); Influenza B, PCR Negative (NEGATIVE); Resp Syncytial Virus, PCR Negative (NEGATIVE); SARS-Cov-2 (COVID-19) PCR, MMC Negative (NEGATIVE)
== END 2020-06-06 12:10 | disposition home or self-care (01) ==
LOC: ER 06:34 → EOR 06:35
PROVIDERS: ADMIT Emergency Medicine
DX: F25.0 Schizoaffective disorder, bipolar type (principal); R45.850 Homicidal ideations; F15.90 Other stimulant use, unspecified, uncomplicated; F31.9 Bipolar disorder, unspecified; F43.10 Post-traumatic stress disorder, unspecified; M10.9 Gout, unspecified; F17.210 Nicotine dependence, cigarettes, uncomplicated; K40.90 Unilateral inguinal hernia, without obstruction or gangrene, not specified as recurrent; E66.9 Obesity, unspecified; Z88.8 Allergy status to other drugs, medicaments and biological substances; Z20.822 Contact with and (suspected) exposure to COVID-19; F12.11 Cannabis abuse, in remission; Z91.14 Patient's other noncompliance with medication regimen; Z68.43 Body mass index [BMI] 50.0-59.9, adult
CPT/HCPCS: 0241U; 80053; 81003; 84436; 84443; 85025; 96372; 99285-25; A9270; G0378; G0480; J1100; J1200; J1630; J2060; Q3014

== ENCOUNTER 2020-06-16 23:53 | Inpatient (IN) | payer OTHER ==
[~2020-06-16] VITALS: Ht 177.8 cm; Wt 152.3 kg
[2020-06-17 00:17] LABS: PCO2 Arterial 36.4 mmHg (35-45); pH Blood Arterial 7.41 (7.35-7.45)
[2020-06-17 00:32] LABS: BASOPHILS ABSOLUTE AUTO 0.03 K/mm3 (0.00-0.23); BASOPHILS PERCENT AUTO 0 % (0-2); EOSINOPHILS ABSOLUTE AUTO 0.03 K/mm3 (0.00-0.68); EOSINOPHILS PERCENT AUTO 0 % (0-6); Hematocrit 44.9 % (37.0-53.0); IMMATURE GRAN ABSOLUTE AUTO 0.06 K/mm3 (0.00-0.10); IMMATURE GRAN PERCENT AUTO 1 % (0-1); LYMPHOCYTES ABSOLUTE AUTO 2.06 K/mm3 (0.84-5.20); LYMPHOCYTES PERCENT AUTO 19 % (21-46); MONOCYTES ABSOLUTE AUTO 0.76 K/mm3 (0.16-1.47); MONOCYTES PERCENT AUTO 7 % (4-13); Mean Corpuscular HGB Conc 35.6 g/dL (31.5-36.5); Mean Corpuscular Volume 84 fL (80-100); Mean Platelet Volume 10.9 fL (9.1-12.4); NEUTROPHILS ABSOLUTE AUTO 7.79 K/mm3 (1.96-9.15); NEUTROPHILS PERCENT AUTO 73 % (41-73); Platelet Count 225 K/mm3 (150-400); RDW Coefficient Variation 11.9 % (11.7-14.2); RDW Standard Deviation 35.8 fL (35.1-46.3); Red Blood Cell Count 5.34 M/mm3 (4.30-5.90); White Blood Cell Count 10.73 K/mm3 (4.00-11.30)
[2020-06-17 00:52] LABS: Alanine Aminotransfer (ALT/SGP 38 U/L (12-78); Albumin, Blood 3.5 g/dL (3.4-5.0); Albumin/Globulin Ratio 0.9 (0.8-1.8); Alk Phos 81 U/L (50-136); Anion Gap 13 mmol/L (6-16); Aspartate Aminotrans (AST/SGOT 23 U/L (12-37); Bilirubin, Total 0.8 mg/dL (0.1-1.0); Blood Urea Nitrogen 17 mg/dL (8-24); Bun/Creatinine Ratio 16.7 (12.0-20.0); CO2, Blood 21 mmol/L (21-32); Calcium, Blood 8.7 mg/dL (8.5-10.1); Chloride, Blood 97 mmol/L (98-108); Creatinine, Blood 1.02 mg/dL (0.60-1.20); Globulin, Blood 3.8 g/dL (2.2-4.0); Glomerular Filtration Rate >60 (60-); Glucose, Blood 452 mg/dL (70-99); Potassium, Blood 4.1 mmol/L (3.5-5.5); Sodium, Blood 131 mmol/L (136-145); Total Protein, Blood 7.3 g/dL (6.4-8.2); Troponin I 0.108 ng/mL (0.000-0.040)
[2020-06-17 01:09] LABS: Influenza A, PCR NEGATIVE (NEGATIVE); Influenza B, PCR NEGATIVE (NEGATIVE); Resp Syncytial Virus, PCR NEGATIVE (NEGATIVE); SARS-Cov-2 (COVID-19) PCR, MMC NEGATIVE (NEGATIVE)
--- NOTE | 2020-06-17 03:50 | NUR ---
PT ARRIVES TO ICU 5 VIA GURNEY FROM ER. HE ROUSES BRIEFLY TO SHOULDER RUB WITH LOUDLY SPOKEN NAME, STATES THAT HE WANTS WATER, INFORMED THAT HE IS NPO FOR POTENTIAL PROCEDURE THIS AM. WHEN ASKED IF HE WOULD LIKE HIS FLU VACCINE OR ANY OTHER QUESTIONS, HE CONTINUES TO STATE "WATER" HE DOES APPEAR TO RETURN TO SLEEP WHEN UNDISTURBED. BIPAP IN PLACE ON ARRIVAL 100% FIO2, PRESSURES 16/12, BACKUP RATE 18, LUNGS ARE CLEAR BILAT WITH DIM BASES, SATS LOW TO MID 90S, PT CURRENT RATE HIGH 20S. HRR, SINUS TACH NOTED ON MONITOR, RATE 110-LOW 120S, PRESSURES MAINTAINING, NO EDEMA IS NOTED, SKIN IS PINK, WARM AND DRY WITH BRISK CAP REFILL, FULL PULSES X ALL EXTREMITIES. PT ABD DISTENDED, ACTIVE BOWEL TONES, NO GRIMACING WITH PALPATION, NOTED SOFT. OUTPT CLOTHING IS NOTED WET WITH STRONG SMELL OF URINE NOTED, PT TOLERATES REMOVAL. NO WOUNDS ARE NOTED AT THIS TIME. IV ACCESS NOTED TO LEFT WRIST, LEFT UPPER ARM, AND RIGHT HAND.
[2020-06-17 04:48] LABS: Source, Urine Clean Catch
[2020-06-17 04:56] LABS: Bilirubin, Urine Neg (Neg); Blood, Urine 1+ (Neg); Glucose Qualitative, Urine 4+ (Neg); Ketones, Urine 3+ (Neg); Leukocyte Esterase, Urine Neg (Neg); Nitrite, Urine Neg (Neg); Protein, Urine 1+ (Neg); Specific Gravity, Urine 1.015 (1.003-1.022); Urobilinogen, Urine NORM (Normal)
[2020-06-17 04:59] LABS: Appearance, Urine Clear (Clear); Color, Urine Yellow (P-Yellow)
[2020-06-17 05:06] LABS: U Amphetamine Screen DETECTED; U Barbituate Screen Not Detected; U Benzodiazapine Screen Not Detected; U Buprenorphine Screen Not Detected; U Cannabinoids Screen Not Detected; U Cocaine Screen Not Detected; U Methadone Screen Not Detected; U Methamphetamine Screen DETECTED; U Opiates Screen Not Detected; U Oxycodone Screen Not Detected; U Phencyclidine Screen Not Detected; U Propoxyphene Screen Not Detected
[2020-06-17 05:08] LABS: Bacteria Not Seen /hpf; Red Blood Cells, Urine 0-2 /hpf (0-2); Squamous Epithelial Cells Not Seen /hpf (Few); White Blood Cells, Urine Not Seen /hpf (0-5)
--- NOTE | 2020-06-17 05:36 | NUR ---
GLUCOMETER READS "[facility]" LAB NOTIFIED OF NEED FOR STAT GLUCOSE
--- NOTE | 2020-06-17 06:07 | NUR ---
DR MARIE NOTIFIED OF 0600 GLUCOSE GREATER THAN 500 WELL RESULTS OF U-TOX AND UA, WILL CONT PREVIOUSLY DISCUSSED GLUCOSE CONTROL. NO NEW ORDERS AT THIS TIME.
[2020-06-17 06:16] LABS: Glucose, Blood 526 mg/dL (70-99)
--- NOTE | 2020-06-17 08:00 | NUR ---
ASSUMED CARE RECEIVED REPORT FROM REZA HOLM. PT SLEEPING/LETHARGIC ON BIPAP 16/, 100% WITH A BACK UP RATE OF 18. SPO2 94%+. HE IS IN SINUS TACH, RATE 120s, BP STABLE WITH AN ELEVATED DBP (LOW 100s). HEPARIN INFUSING AT 15 UNITS/KG/HR, WITH A WEIGHT OF 100 KG - VERIFIED WITH ORDERS AND ALTA. NS ALSO INFUSING AT 75 ML/HR. BED LOW AND LOCKED. CALL LIGHT WITHIN REACH.
[2020-06-17 08:58] LABS: Glucose, Blood 494 mg/dL (70-99)
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
--- NOTE | 2020-06-17 11:12 | NUR ---
Echocardiogram completed.
[2020-06-17] MEDS ORDERED: INVEGA SUS234 MG/1.1 IM (11:26)
[2020-06-17] MEDS ORDERED: [UNRECOGNIZED DRUG - CODE] PO (11:27)
[2020-06-17] MEDS ORDERED: ALBU90OI INH (11:28)
[2020-06-17] MEDS ORDERED: HYDHCL25 PO (11:28)
[2020-06-17] MEDS ORDERED: FLUT1DIS5 INH (11:29)
[2020-06-17 12:12] LABS: BASOPHILS ABSOLUTE AUTO 0.01 K/mm3 (0.00-0.23); BASOPHILS PERCENT AUTO 0 % (0-2); EOSINOPHILS PERCENT AUTO 0 % (0-6); Hematocrit 46.1 % (37.0-53.0); IMMATURE GRAN ABSOLUTE AUTO 0.05 K/mm3 (0.00-0.10); IMMATURE GRAN PERCENT AUTO 1 % (0-1); LYMPHOCYTES ABSOLUTE AUTO 0.87 K/mm3 (0.84-5.20); LYMPHOCYTES PERCENT AUTO 9 % (21-46); MONOCYTES ABSOLUTE AUTO 0.39 K/mm3 (0.16-1.47); MONOCYTES PERCENT AUTO 4 % (4-13); Mean Corpuscular HGB 29.7 pg (26.0-34.0); Mean Corpuscular HGB Conc 34.7 g/dL (31.5-36.5); Mean Corpuscular Volume 86 fL (80-100); NEUTROPHILS ABSOLUTE AUTO 8.51 K/mm3 (1.96-9.15); NEUTROPHILS PERCENT AUTO 87 % (41-73); Platelet Count 250 K/mm3 (150-400); RDW Standard Deviation 36.8 fL (35.1-46.3); Red Blood Cell Count 5.39 M/mm3 (4.30-5.90); White Blood Cell Count 9.83 K/mm3 (4.00-11.30)
[2020-06-17 12:32] LABS: Alanine Aminotransfer (ALT/SGP 42 U/L (12-78); Albumin, Blood 3.5 g/dL (3.4-5.0); Albumin/Globulin Ratio 0.9 (0.8-1.8); Alk Phos 85 U/L (50-136); Anion Gap 10 mmol/L (6-16); Aspartate Aminotrans (AST/SGOT 57 U/L (12-37); Bilirubin, Total 0.5 mg/dL (0.1-1.0); Blood Urea Nitrogen 22 mg/dL (8-24); CO2, Blood 23 mmol/L (21-32); Calcium, Blood 8.9 mg/dL (8.5-10.1); Chloride, Blood 101 mmol/L (98-108); Creatinine, Blood 1.16 mg/dL (0.60-1.20); Globulin, Blood 4.1 g/dL (2.2-4.0); Glomerular Filtration Rate >60 (60-); Glucose, Blood 370 mg/dL (70-99); Potassium, Blood 4.2 mmol/L (3.5-5.5); Sodium, Blood 134 mmol/L (136-145); Total Protein, Blood 7.6 g/dL (6.4-8.2)
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
--- NOTE | 2020-06-17 14:51 | NUR ---
CURRENT BEHAVIOR PT CAN WAKE UP SPONTANEOUSLY, AND BE ORIENTED TO SELF, SURROUNDINGS/PLACE, SOMEWHAT OF SITUATION, AND THE PRESIDENT. HOWEVER, HE IS QUITE SLEEPY/LETHARGIC CURRENTLY, SO HE WAKES UP MAINLY TO VERBAL STIMULI - HE WAS REQUIRING BIPAP, BUT IS NOW ON 6L NC. SPO2 88-93%. HE IS IN AND OUT OF SLEEP. HE MAKES HIS BASIC NEEDS KNOWN (WHEN HE NEEDS TO PEE, WHEN HE WANTS WATER, ETC...). HE HAS THANKED ME FOR WHAT I AM DOING. JACQUELIN STATES THAT NASIM WHEN AWAKE IS OFTEN HIGH ENERGY, "JOKESTER", MILD FLOR, ETC... SO THE BEHAVIOR DESCRIBED TO HER (ASIDE THE DELUSION) IS NOT TYPICAL OF HIM, AND IS MOST LIKELY INFLUENCED BY THE ATIVAN GIVEN IN THE ER. WILL CONTINUE TO MONITOR.
--- NOTE | 2020-06-17 15:00 | NUR ---
DISCHARGE PLANNING JACQUELIN FROM [facility] (ACT NURSE) REQUESTS THAT HERSELF, OR SOMEONE FROM [facility] BE CONTACTED WHEN THE PTs DISCHARGE IS BEING DISCUSSED/PLANNED - THEY WILL HELP WITH HOUSING AND OTHER SERVICES THE PT WILL NEED AFTER STAYING IN THE HOSPITAL. JACQUELIN's NUMBER IS ON THE CARDEX AND IN THE ORDERS.
--- NOTE | 2020-06-17 16:00 | NUR ---
UPDATE PT TRANSFERRED TO TONGUE AND GROOVE MACHINE OPERATOR VIA BED ~1600. BIPAP OFF FOR THE TRANSPORT, 6L NC ON. RT AWARE, AND WILL MEET IN TONGUE AND GROOVE MACHINE OPERATOR TO PLACE PT BACK ON BIPAP. PT LEFT ON INSULIN GTTP AT 7.3 ML/HR (0.05 UNITS/KG/HR), HEPARIN GTTP 17 UNITS/KG/HR, AND NS AT 75 ML/HR. TONGUE AND GROOVE MACHINE OPERATOR INSTRUCTED TO TAKE A BLOOD SUGAR AT 1700, AND THEN CALL THIS RN TO DECIDE IF INSULIN WILL CONTINUE OR BE PUT ON STANDBY. DR. ZAMORA MENTIONED THAT SHE MAY STOP THE INSULIN GTTP WHEN THE GLUCOSE REACHES 250. WILL CALL AND CONFIRM WHEN PT's SUGAR AT 250 OR LESS.
--- NOTE | 2020-06-17 19:38 | NUR ---
UPDATE/END OF SHIFT PT BACK FROM CONDUIT REAMER OPERATOR AT ~1845 ON BIPAP 12/11, 80% FIO2. SPO2 96%+. PT SLEEPING/LETHARGIC FROM CONSCIOUS SEDATION GIVEN IN CONDUIT REAMER OPERATOR. PT HAD RIGHT GROIN ACCESS, AND CURRENTLY HAS A OPSITE AND GAUZE COVERING THE SITE. AREA IS SOFT, NONTENDER, AND NOT SHOWING ANY SIGNS OF HEMATOMA FORMATION. THERE IS A SPOT OF BLOOD SHOWN IN THE GAUZE THAT IS OUTLINED WITH MARKER TO MEASURE. PT DID NOT RETURN ON HEPARIN GTTP, AND NS AT 75 ML/HR HAD BEEN PLACED ON STANDBY. INSULIN CONTINUED TO INFUSE AT 7.3 UNITS/KG/HOUR. CONDUIT REAMER OPERATOR RN REPORTED A BLOOD SUGAR IN THE ~280s AT 1800. AT 1855 THIS RN RECHECKED THE BLOOD SUGAR AND IT HAD DROPPED DOWN TO 160. THE INSULIN GTTP WAS PUT ON STANDBY - DR. ZAMORA HAD MENTIONED SHE WANTED TO TURN IT OFF AT 250. CALL WAS PLACED TO DR. ZAMORA BUT NO ANSWER - PASSED OFF TO NOC RN. THE CONDUIT REAMER OPERATOR RN HAD INSTRUCTED THIS RN THAT THE HEPARIN GTTP WAS DISCONTINUED, BUT DR. MONAE's NOTE HAD SAID TO RESTART THE HEPARIN GTTP WHEN PT STOPPED BLEEDING IN HIS GROIN (SEE ABOVE REGARDING THE SPOT OF BLOOD IN THE GAUZE IN THE GROIN). A CALL WAS PLACED OUT TO DR. MONAE, BUT NO ANSWER, AND NO ROOM ON HIS VOICEMAIL TO LEAVE A MESSAGE. PASSED OFF TO NOC RN.
--- NOTE | 2020-06-17 19:49 | NUR ---
ASSUMED CARE OF PT, BEDSIDE REPORT RECEIVED. PT IS RESTING QUIETLY LYING FLAT IN BED PER ORDERS AT THIS TIME, BIPAP IN PLACE PRESSURES 14/7, FIO2 80%, SATS 99%, BACKUP RATE 18, TIDAL VOLUMES NEAR 700 AT THIS TIME, FIO2 DECREASED TO 70% WILL MONITOR SATS. PT ROUSES TO VERBAL STIMULI, ANSWERS THAT HE IS DOING GOOD, SHAKES HEAD NO WHEN ASKED IF HE IS HAVING ANY DYSPNEA AT THIS TIME, NODS HEAD WHEN ASKED IF HE IS JUST SLEEPY. APPEARS TO RETURN TO SLEEP WHEN VERBAL STIMULATION STOPS. HRR, SINUS TACH CONTINUES, RATE LOW 100S AT THIS TIME, PRESSURES MAINTAINING, SKIN PWD, NO EDEMA IS NOTED, BRISK CAP REFILL, RIGHT GROIN ACCESS SITE DRESSING IS CDI WITH SMALL AMOUNT OF BLEEDING NOTED UNDER DRESSING HOWEVER REMAINS WITHIN DEMARKATED LINES, SITE IS SOFT, NO BRUISING NOTED, WASHCLOTH TUCKED IN SKIN FOLD OF GROIN TO IMPROVE MONITORING FOR BLEEDING AT MEDIAL ASPECT OF DRESSING, BIOX PROBE IS PLACED TO RIGHT SECOND TOE, GOOD WAVEFORM NOTED, PULSES FULL X 4 EXTREMITIES. NS @ 75 ML/HR CURRENTLY, HEPARIN GTT IS NOTED DC'D PER OFFGOING RN, INSULIN GTT ON STANDBY AFTER BLOOD GLUCOSE LEVELS LESS THAN [address] ZAMORA PER OFFGOING RN, WILL NOTIFY HOSPITALIST PER ORDERS.
--- NOTE | 2020-06-17 20:53 | NUR ---
FIO2 DECREASED TO 50% FOR SATS 100% WILL CONT TO MONITOR. PT STATES THAT BREATIHNG IS FEELING "GOOD"
[2020-06-18 05:20] LABS: BASOPHILS ABSOLUTE AUTO 0.04 K/mm3 (0.00-0.23); BASOPHILS PERCENT AUTO 0 % (0-2); EOSINOPHILS ABSOLUTE AUTO 0.03 K/mm3 (0.00-0.68); EOSINOPHILS PERCENT AUTO 0 % (0-6); Hematocrit 39.5 % (37.0-53.0); Hemoglobin 13.7 g/dL (13.5-17.5); IMMATURE GRAN ABSOLUTE AUTO 0.04 K/mm3 (0.00-0.10); IMMATURE GRAN PERCENT AUTO 0 % (0-1); LYMPHOCYTES PERCENT AUTO 18 % (21-46); MONOCYTES PERCENT AUTO 7 % (4-13); Mean Corpuscular HGB 30.1 pg (26.0-34.0); Mean Corpuscular HGB Conc 34.7 g/dL (31.5-36.5); Mean Corpuscular Volume 87 fL (80-100); Mean Platelet Volume 10.7 fL (9.1-12.4); NEUTROPHILS ABSOLUTE AUTO 8.65 K/mm3 (1.96-9.15); NEUTROPHILS PERCENT AUTO 74 % (41-73); Platelet Count 204 K/mm3 (150-400); RDW Coefficient Variation 12.3 % (11.7-14.2); RDW Standard Deviation 39.2 fL (35.1-46.3); Red Blood Cell Count 4.55 M/mm3 (4.30-5.90); White Blood Cell Count 11.66 K/mm3 (4.00-11.30)
[2020-06-18 05:42] LABS: Albumin, Blood 2.9 g/dL (3.4-5.0); Anion Gap 6 mmol/L (6-16); Blood Urea Nitrogen 23 mg/dL (8-24); Bun/Creatinine Ratio 21.1 (12.0-20.0); CO2, Blood 27 mmol/L (21-32); Calcium, Blood 7.8 mg/dL (8.5-10.1); Chloride, Blood 103 mmol/L (98-108); Creatinine, Blood 1.09 mg/dL (0.60-1.20); Glomerular Filtration Rate >60 (60-); Glucose, Blood 258 mg/dL (70-99); Phosphorus, Blood 3.1 mg/dL (2.5-4.9); Potassium, Blood 3.8 mmol/L (3.5-5.5); Sodium, Blood 136 mmol/L (136-145)
--- NOTE | 2020-06-18 05:54 | NUR ---
HEPARIN GTT INCREASED TO 19 UNITS/KG/HR PER PHARMACY, RATE 38 ML/HR
--- NOTE | 2020-06-18 06:03 | NUR ---
PT RESTS QUIETLY THROUGHOUT SHIFT, ROUSES WELL TO VERBAL STIMULI, IS NOTED TO USUALLY KEEP EYES CLOSED AND MUMBLE WHEN SPEAKING TO STAFF. HE HAS TOLERATED DIET INCREASED FROM CLEAR TO FULL LIQUIDS THROUGHOUT NOC, ADA DIET IS ORDERED FOR BREAKFAST PER DR MONAE'S ORDER TO ADVANCE TOLERATED. PT DOES C/O HUNGER THROUGHOUT NOC, SUGAR FREE JELLO AND NO SUGAR ADDED VANILLA PUDDING HAVE BEEN TOLERATED WELL. LUNGS REMAIN CLEAR THROUGHOUT WITH DIM BASES BILAT, SATS ARE NOW MAINTAINING WITH OXYGEN VIA NASAL CANNULA AT 2 L/MIN, PT CONT TO STATE THAT HIS BREATHING IS FEELING GOOD, NO VISIBLE INCREASED WORK OF BREATHING HAS BEEN NOTED, OCCASIONAL HARSH COUGH. CONTINUES IN SINUS TACH LOW 100S THROUGHOUT NOC, BP MAINTAINED, SKIN REMAINS PWD WITH BRISK CAP REFILL AND STRONG PULSES TO ALL EXTREMITIES. RIGHT GROIN ACCESS SITE DOES HAVE SOME SURFACE OOZING VISIBLE UNDER DRESSING HOWEVER SITE REMAINS SOFT WITHOUT BRUISING, SWELLING, OR PAIN, BIOX PROBE TO TOES ON RIGHT FOOT, CHANGED OUT FOR SOFT TAPE PROBE DURING NOC. HEPARIN GTT RESUMED AT 2230 AT PREVIOUS RATE PER PHARMACIST AND THEN INCREASED TO 19 UNITS/KG/HR WITH 0500 PTT RESULTS.
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
--- NOTE | 2020-06-18 10:30 | NUR ---
PT NAPPING, SATS DROP TO 80'S, NC PLACED IN MOUTH HE IS MOUTH BREATHING, NOT MUCH RECOVERY. OXYGEN PUT UP TO 4L/NC,SATS RECOVERED.
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
--- NOTE | 2020-06-18 12:21 | NUR ---
DEEPTI, HE PREFERS TO BE CALLED, ASKED THAT "MILLIE" NOT BE GIVEN ACCESS TO HIS RECORDS, HE SAYS "I HEAR HIM OUT THERE". I EXPLAINED THAT I DO NOT HAVE A "MILLIE" IN THE UNIT AND HE SAYS TO ME THAT HE "HEARS HIM" AND I ASKED IF HE MEANT IN HIS HEAD AND HE SAID "YES" I EXPLAINED THAT I WILL NOT LET HIM HAVE ANY ACCESS TO HIS RECORDS.
--- NOTE | 2020-06-18 17:14 | NUR ---
PT BACK IN BED, HAS DONE WELL TODAY. GROIN SIGHT CONTINUES TO LOOK GOOD, PULSES GOOD. SMALL AMOUNT OF DRAINAGE AFTER BEING UP IN CHAIR AND BACK TO BED. OXYGEN CONTINUES AT 4L AFTER HIS DROP DURING HIS NAP THIS AM. HE HAS HAD A RAVENOUS APPETITE, HAVING A SNACK OF CHEESE STICKS BETWEEN LUNCH AND DINNER. HIS BLOOD SUGARS HAVE CONTINUED IN THE HI 200'S LOW 300'S THROUGHOUT THE DAY. HE IS PLEASANT EVEN WITH HIS FLIGHT OF IDEAS AND AUDITORY HALLUCINATIONS. ENJOYED HIS BATH, STILL HAS AN ODOR THAT I AM UNSURE OF WHERE IT IS COMING FROM. NO WOUNDS FOUND.
[2020-06-19 05:10] LABS: BASOPHILS ABSOLUTE AUTO 0.02 K/mm3 (0.00-0.23); BASOPHILS PERCENT AUTO 0 % (0-2); EOSINOPHILS ABSOLUTE AUTO 0.09 K/mm3 (0.00-0.68); EOSINOPHILS PERCENT AUTO 1 % (0-6); Hematocrit 37.6 % (37.0-53.0); Hemoglobin 12.5 g/dL (13.5-17.5); IMMATURE GRAN ABSOLUTE AUTO 0.06 K/mm3 (0.00-0.10); IMMATURE GRAN PERCENT AUTO 1 % (0-1); LYMPHOCYTES ABSOLUTE AUTO 2.05 K/mm3 (0.84-5.20); LYMPHOCYTES PERCENT AUTO 29 % (21-46); MONOCYTES ABSOLUTE AUTO 0.66 K/mm3 (0.16-1.47); MONOCYTES PERCENT AUTO 9 % (4-13); Mean Corpuscular HGB 29.6 pg (26.0-34.0); Mean Corpuscular HGB Conc 33.2 g/dL (31.5-36.5); Mean Corpuscular Volume 89 fL (80-100); Mean Platelet Volume 10.7 fL (9.1-12.4); NEUTROPHILS ABSOLUTE AUTO 4.28 K/mm3 (1.96-9.15); NEUTROPHILS PERCENT AUTO 60 % (41-73); Platelet Count 174 K/mm3 (150-400); RDW Coefficient Variation 12.3 % (11.7-14.2); RDW Standard Deviation 39.4 fL (35.1-46.3); Red Blood Cell Count 4.23 M/mm3 (4.30-5.90); White Blood Cell Count 7.16 K/mm3 (4.00-11.30)
[2020-06-19 05:41] LABS: Albumin, Blood 2.9 g/dL (3.4-5.0); Anion Gap 6 mmol/L (6-16); Blood Urea Nitrogen 18 mg/dL (8-24); Bun/Creatinine Ratio 17.5 (12.0-20.0); CO2, Blood 28 mmol/L (21-32); Calcium, Blood 7.9 mg/dL (8.5-10.1); Chloride, Blood 101 mmol/L (98-108); Creatinine, Blood 1.03 mg/dL (0.60-1.20); Glomerular Filtration Rate >60 (60-); Glucose, Blood 217 mg/dL (70-99); Phosphorus, Blood 3.9 mg/dL (2.5-4.9); Potassium, Blood 3.9 mmol/L (3.5-5.5); Sodium, Blood 135 mmol/L (136-145)
--- NOTE | 2020-06-19 05:49 | NUR ---
SHIFT SUMMARY PT A&O TO SELF, PLACE, FOLLOWING INSTRUCTIONS. PT SLEEPING MAJORITY OF NIGHT. VSS. OXYGEN INCREASED FROM 4L NC TO 7L HUMIDIFIED HI-FADIA NC THIS SHIFT D/T SPO2 DESAT TO 84% WHILE SLEEPING. MONITOR SHOWS SR-ST, HR 80's-110's. R GROIN SITE WNL. NO EVENTS OVER NIGHT.
--- NOTE | 2020-06-19 08:50 | NUR ---
UPDATE: PT SLEEPING ON AND OFF THIS AM. DENIES PAIN AND NAUSEA. ALERT TO SITUATION, SELF, PLACE AND STAFF. UNABLE TO STATE CORRECT DATE. TELE SHOWING SR-ST WITH HR 90-110. PT ON 4 L O2 SATING AT 92-93%. WHEN SLEEPING DESATS TO 88% AND NEEDS 6-7L O2. LUNGS SOUND CLEAR WITH DIMINISHED BASES. VITAL SIGNS STABLE. NO ACUTE CHANGES THIS AM. RIGHT GROIN SIGHT SLIGHTLY ECCHYMOTIC WITH NO SIGNS OF HEMATOMA. SCANT DRY BLOOD UNDER TEGADERM. NO SIGNS OF NEW BLEEDING. PT DESCRIBES SITE FEELING "LIKE A BRUISE". PT PLEASENT WITH CARES AND ANSWEREING CARE QUESTIONS APPROPRIATLY. WHEN OUT OF THE ROOM NEARBY PT TALKING TO SELF LOUDLY, UNABLE TO MAKE OUT WHAT PATIENT IS SAYING. CALL LIGHT IN REACH. EDUCATED ON GOALS TO GET UP IN CARE AND DECREASE OXYGEN DEMAND WE ARE ABLE TO. PT AGGREABLE TO PLAN. TELE PSYCH CONSULT ORDERED AND CALL PLACED. WILL CONTINUE TO MONITOR PATIENT.
--- NOTE | 2020-06-19 10:22 | NUR ---
VICENTE PSYCH CONSULT DR. SHEETS CONSULTING PT VIA [employer]. PT YELLING LOUDLY AT DR. SHEETS ABOUT PEOPLE SPENDING HIS MONEY, HIS MOM BEING PRINCESS WRIGHT, WANTING HIS MONEY FROM THE [employer] AND WAS UNABLE TO HAVE A PRODUCTIVE CONVERSATION.
--- NOTE | 2020-06-19 13:44 | NUR ---
UPDATE: PT UP IN RECLINER FOR LUNCH. OXYGEN SATURATION 93% ON 4 L 02 VIA NASAL CANNULA. DENIES ANY PAIN. WILL CONTINUE TO MONITOR.
--- NOTE | 2020-06-19 17:51 | NUR ---
SHIFT SUMMARY: PT REMAINS STABLE, NO ACUTE CHANGE. SEE PREVIOUS NOTES. BACK IN BED THIS EVENING. PT SLEEPING ON AND OFF THROUGHOUT THE DAY. VITAL SIGNS REMAIN STABLE. ON 4-6 L O2 VIA HIGH FLOW NASAL CANNULA SATING 92-95%. RIGHT GROIN SIGHT REMAINS UNCHANGED. NO SIGNS OF HEMATOMA/ACTIVE BLEEDING. ECCHYMOTIC AROUND SITE. TEGADERM IN PLACE. PT USING URINAL AND CALLING APPROPRIATLY. WILL CONTINUE TO MONITOR AND REPORT OFF.
--- NOTE | 2020-06-20 05:22 | NUR ---
PT TRANSFERED FROM ICU 5 SHORTLY AFTER 0400 THIS SHIFT. PLEASANT AND COOPERATIVE. HAS NOT GOTTEN OUT OF BED. REQUESTED SNACK WHEN FIRST ARRIVING TO ROOM. SMELLS OF URINE BUT BLANKETS AND GOWN APPEAR TO BE CLEAN AND DRY. PER REPORT, PT DOES USE THE URINAL INDEPENDENTLY WHILE IN THE BED AND IT IS UNKNOWN IF PT HAS BEEN OUT OF BED SINCE ADMISSION. TELEMETRY PLACED. READING SR 97. HEPARIN DRIP INFUSING AT 28 U/KG/HR OR 56 ML/HR. HX OF PARANOID SCHIZOPHRENIA, BIPOLAR, AND PTSD. PT HAS BEEN CALM AND COOPERATIVE SO FAR SINCE TRANSFER. PT ON 6 L VIA NC. VITAL SIGNS STABLE. WILL CONTINUE TO MONITOR.
--- NOTE | 2020-06-20 16:07 | NUR ---
PATIENT IS ALERT AND ORIENTED. HE IS DELUSIONAL. HIS SPEECH IS CLEAR. THE PATIENT HAS NO TEETH AND NO DENTURES. HE IS ON 6L O2 NC [facility] OXYGEN SATURATIONS AT 94%. O2 WAS TITRATED TO 4L O2 VIA NC WITH O2 SATS AT 94% BUT ONCE THE PATIENT FELL ASLEEP HIS SATURATION FELL TO 89%. PATIENT HAS A NON-PRODUCTIVE COUGH. HEPARIN IV IS RUNNING. PATIENT USES THE URINAL INDEPENDENTLY. WILL CONTINUE TO MONITOR.
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
--- NOTE | 2020-06-20 22:02 | NUR ---
NASIM WILL BE QUITE FOR A WHILE BUT GET VERY AGGITATED ANY TIME WE DO ANYTHING WITH HIM SUCH LAB DRAWS, VITALS, MEDS, ASSESSMENTS. IT ALWAYS PUTS HIM IN A VERY ANGRY MOOD, PARNOID AND THEN HE STARTED TO YELL WITH HIS DULUSIONS. WILL CONTINUE TO MONITOR.
--- NOTE | 2020-06-21 05:08 | NUR ---
SHIFT SUMMARY: NASIM HAS BEEN VERY ESPINOSA THIS SHIFT, GETS ANGRY EASILY WITH ANY CARE. REFUSED LABS THIS AM DISPITE NEED FOR HEPARIN MONITORING. STATES HE WANTS TO LEAVE. VERY DULUSIONAL. SCREAMS OUT OCCATIONALLY. PLEASE SEE MY ASSUMPTION OF CARE NOTE. VS WNL, AFEBRILE. LUNG SOUNDS CLEAR, DYSPENIC, ON 6 LITERS SATS >90%. DENIES PAIN. NOT VERY MOTIVATED. TALKS ALOT ABOUT HOW HES GOING TO KILL EVERYONE. NEVER HAPPY. HEPARIN CONTINUES TO RUN WITH NO ISSUES. CALL LIGHT REMAINS IN REACH.
--- NOTE | 2020-06-21 18:29 | NUR ---
SHIFT SUMMARY: PATIENT WAS AGITATED, SHOUTING OBSCENITIES AT START OF SHIFT. REFUSED HALDOL AND DEPAKOTE THIS MORNING. MOOD EASED THROUGHOUT THE DAY AND THIS EVENING HE IS CALM AND COOPERATIVE. HE COOPERATED WITH TELEPSYCH VISIT THIS EVENING BUT IT WAS SHORT, ABOUT 10 MINUTES OR SO. AMBULATED IN HALLWAY X 1 WITH SUPERVISION, GAIT IS A BIT WOBBLY. REFUSED TO WEAR O2 ALL DAY. WIG COMBER COUGH, TESSALON PEARLS GIVEN WITH SOME RELIEF. C/O "SEVERE" PAIN IN BILATERAL FEET; MEDICATED WITH TYLENOL WITH NO FURTHER COMPLAINTS. COOPERATED WITH BED BATH. NAPPED OFF AND ON THROUGHOUT THE DAY.
--- NOTE | 2020-06-22 04:24 | NUR ---
STEEL RIGGER SUMMARY PT A&OX4, FORGETUL AND IRRITABLE AT TIMES. MEDICATED FOR PAIN IN FEET PER EMAR. NO C/O CP, SOB, OR N&V. PT ON 6LPM O2 VIA NC, SATS >92%. CONT ON HEP DRIP ORDERED, RUNNING W/O ISSUES. PT CALM AND RESTING IN BED AT THIS TIME, CALL LIGHT WITHIN REACH.
[2020-06-22 09:12] LABS: Hematocrit 35.7 % (37.0-53.0); Hemoglobin 11.8 g/dL (13.5-17.5); Mean Corpuscular HGB 29.9 pg (26.0-34.0); Mean Corpuscular HGB Conc 33.1 g/dL (31.5-36.5); Mean Corpuscular Volume 90 fL (80-100); Mean Platelet Volume 11.2 fL (9.1-12.4); Platelet Count 228 K/mm3 (150-400); RDW Coefficient Variation 12.1 % (11.7-14.2); Red Blood Cell Count 3.95 M/mm3 (4.30-5.90); White Blood Cell Count 4.61 K/mm3 (4.00-11.30)
[2020-06-22 09:20] LABS: Anion Gap 2 mmol/L (6-16); Blood Urea Nitrogen 10 mg/dL (8-24); Bun/Creatinine Ratio 10.9 (12.0-20.0); CO2, Blood 33 mmol/L (21-32); Calcium, Blood 8.5 mg/dL (8.5-10.1); Chloride, Blood 104 mmol/L (98-108); Creatinine, Blood 0.92 mg/dL (0.60-1.20); Glomerular Filtration Rate >60 (60-); Glucose, Blood 168 mg/dL (70-99); Potassium, Blood 4.2 mmol/L (3.5-5.5); Sodium, Blood 139 mmol/L (136-145)
--- NOTE | 2020-06-22 18:34 | NUR ---
SHIFT SUMMARY: NO ACUTE EVENTS. NO BEHAVIORAL OUTBURSTS TODAY. KEEPS REQUESTING CANDY, REORIENTED ABOUT HIS DM. HEPARIN GTT INFUSING AT 33 UNITS/KG/HR (66 ML/HR), NEXT PTT DUE AT 2100, LAST ONE THERAPEUTIC. DENIED PAIN. AMBULATING INDEPENDENTLY IN ROOM, OK FOR SHORT DISTANCES, ON ROOM AIR. NO EVENTS ON TELEMETRY. GOOD PO INTAKE. HAD VISIT FROM GRANDMOTHER TODAY.
--- NOTE | 2020-06-23 07:44 | NUR ---
06/23/20 0600 PT SLEPT ON AND OFF LAST NIGHT. DENIED ANY SOB JUST GENERAL AND "FEET" DISCOMFORT. SEE MAR FOR MED GIVEN. VITALS AND HEART MONITOR REMAIN STABLE. FREQUENT REQUESTS FOR SNACKS AND FLUIDS. UNEVENTFUL NIGHT.
--- NOTE | 2020-06-23 17:38 | NUR ---
SHIFT SUMMARY NO ACUTE CHANGES THIS SHIFT. PATIENT HAS BEEN ALERT, ORIENTED, ABLE TO MAKE HIS NEEDS KNOWN. SPOKE WITH [facility] RN JACQUELIN AT [phone] RE POSSIBLE DISCHARGE PLAN. SHE STATES THAT THE PATIENT IS ABLE TO PLACE INTO A MENTAL HEALTH FOSTER HOME IF NEEDED. THE MAIN DECIDING FACTOR, MEDICALLY WILL BE INSULIN USE. THE PATIENT IS HOPEFUL THAT HE CAN DC TO HIS GRANDMOTHERS HOME ON ORAL MEDICATION RATHER THAN INSULIN. INFO RELAYED TO AND CARE MANAGEMENT. PATIENT IS AWAITNG A TELEPSYCH VISIT TODAY, AWAITING APPOINTMENT TIME, TITLE VEHICLE SERVICE ATTENDANT ASSISTING. PATIENT IS INDEPENDENT IN HIS ROOM. BED LOW AND LOCKED, CALL LIGHT WITHIN REACH. WILL CONT TO MONITOR AND GIVE REPORT TO NIGHT RN.
--- NOTE | 2020-06-23 18:44 | NUR ---
TELEPSYCH CONSULT MULTIPLE CALLS TO CHECK ON THE STATUS OF APPOINTMENT TIME FOR TELEPSYCH CONSULT- THE COORDINATORS AT TELEPSYCH STATE "WAITING FOR A PROVIDER TO EVENT CREW TECHNICIAN THE APPOINTMENT AND WE WILL NOTIFY YOU WHEN THAT APPOINTMENT IS" PT DOESNT HAVE AN APPOINTMENT SCHEDULED YET
--- NOTE | 2020-06-23 20:36 | NUR ---
TELEPSYCH CONSULT HAS STARTED
--- NOTE | 2020-06-24 05:40 | NUR ---
06/24/20 0530 PT AWAKE AND LISTENING TO SCREAMING MUSIC. VITALS STABLE. SLEPT ON AND OFF. FREQUENT REQUESTS FOR FOOD/FLUIDS.. DENIES ANY S/S OR DISCOMFORT.
--- NOTE | 2020-06-24 18:11 | NUR ---
SHIFT SUMMARY PT INDEPENDENT INN ROOM. HAS BEEN POLITE TO STAFF BUT DID SEEM ALOOF THIS MORNING WHEN MEDS BEING PREPARED. DID BECOME AGITATED WITH VOICE BECOMING PRESSURED AND LOUDER WHEN TALKING TO HIM ABOUT HIS WALLET. HE CLAIMED HE BROUGHT IT IN WITH HIM ON ADMISSION AND WHERE WAS IT. WHILE ATTEMPTING TO EXPLAIN OUR PROCESS AND ASKING IF IT MAY HAVE BEEN LEFT AT HOME HIS VOICE GOT LOUDER AND MORE PRESSURED. TOLD HIM I WOULD CALL SECURITY AND SEE IT IT WAS IN THE SAFE. PT HAD REPORTED GOING THROUGH HIS BELONGINGS AND IT WASN'T THERE. WHILE IN HALLWAY OUTSIDE ROOM I SPOKE WITH ASSEMBLER HYDRAULIC BACKHOE AND SHE ASKED IF HE HAD LOOKED THROUGH ALL OF HIS BAGS. PT HEARD AND WENT TO BAGS AGAIN AND PULLED WALLET OUT WITHIN LESS THAN A MINUTE. CALMED QUICKLY AND APOLOGIZED FOR MISCOMMUNICATION. MOSTLY FLAT AFFECT MOST OF THE DAY WITH OCCASIONAL CUSSING HEARD FROM ROOM.
--- NOTE | 2020-06-25 04:03 | NUR ---
INSULATION BLOWER SUMMARY A/OX4. DENIES PAIN OR SOB, CURRENTLY ON RA. CONTINUES TO REFUSE PSYCH MEDS. PT IN ROOM TALKING TO HIMSELF T/O THE NIGHT, APPEARING ANGRY. COOPERATIVE WITH CARE OTHERWISE. NO ACUTE CHANGES AT THIS TIME. BED IN LOWEST POSITION WITH CALL LIGHT IN REACH. WILL CONTINUE TO MONITOR AND REPORT TO ONCOMING RN.
[2020-06-25] MEDS ORDERED: GLIP5 PO (12:57)
[2020-06-25] MEDS ORDERED: METF500 PO (12:58)
[2020-06-25] MEDS ORDERED: XARELTO20 MG PO (12:59)
--- NOTE | 2020-06-25 14:00 | NUR ---
DISCHARGE INSTRUCTIONS COMPLETED AND DISCUSSED WITH PT EXPRESSING UNDERSTANDING. EXPLAINED HE NEEDED TO PICK HIS MEDS UP AT [facility]. DID RECEIVED A SCRIPT FOR GLUCOSE MONITERING MACHINE WHICH WAS FAXED TO THE PHARMACY WELL ORIGINAL SCRIPT SENT WITH PT. DISCUSSED IMPORTANCE OF TAKING HIS MEDS REGULARLY AND MONITERING FOR LOW BLOOD SUGARS AND BLEEDING. STATED HE UNDERSTOOD ALL THE WAS EXPLAINED TO HIM. ENCOURAGED HIM TO CALL BACK TODAY IF HE HAD QUESTIONS ABOUT DISCHAGE INSTRUCTIONS. TO [facility] VIA W/C WITH SOLE ASSESSOR, DONNIE, HERE TO PICK HIM UP.
== END 2020-06-25 13:35 | disposition home or self-care (01) | DRG 163 ==
LOC: ER 23:53 → MEDS 06-17 01:27 → ICUE 06-17 01:27 → ERHOLD 06-17 01:27 → ICUE 06-17 03:30 → MEDS 06-20 04:14
PROVIDERS: Emergency Medicine; Family Medicine; Internal Medicine; ADMIT Internal Medicine
PROC: 02CR3ZZ Extirpation of Matter from Left Pulmonary Artery, Percutaneous Approach (ICD-10-PCS; principal; 2020-06-17)
PROC: 02CQ3ZZ Extirpation of Matter from Right Pulmonary Artery, Percutaneous Approach (ICD-10-PCS; 2020-06-17)
PROC: B31TYZZ Fluoroscopy of Left Pulmonary Artery using Other Contrast (ICD-10-PCS; 2020-06-17)
PROC: B31SZZZ Fluoroscopy of Right Pulmonary Artery (ICD-10-PCS; 2020-06-17)
DX: I26.92 Saddle embolus of pulmonary artery without acute cor pulmonale (principal); J96.01 Acute respiratory failure with hypoxia; E87.1 Hypo-osmolality and hyponatremia; I24.8 Other forms of acute ischemic heart disease; Z68.42 Body mass index [BMI] 45.0-49.9, adult; I82.431 Acute embolism and thrombosis of right popliteal vein; Z59.0 Homelessness; Z79.4 Long term (current) use of insulin; F25.9 Schizoaffective disorder, unspecified; E11.65 Type 2 diabetes mellitus with hyperglycemia; F15.10 Other stimulant abuse, uncomplicated; E66.01 Morbid (severe) obesity due to excess calories
CPT/HCPCS: 0241U; 36010; 36014; 36015; 36415; 36600; 37184; 37185; 71045; 71260; 75743; 76937; 80048; 80053; 80069; 81001; 82803; 82947; 83036; 83880; 84484; 85025; 85027; 85347; 85730; 93005; 93010; 93306; 93970; 94660; 94760; 96374; 96375; 99152; 99153; 99285-25; A9270; C1751; C1760; C1769; C1894; J1644; J1815; J2060; J2250; J2930; J3010; J7030; J7050; Q9967

== ENCOUNTER 2020-07-10 17:06 | Inpatient (IN) | payer OTHER ==
[~2020-07-10] VITALS: Ht 172.7 cm; Wt 152.9 kg
[~2020-07-10 17:06] MED LIST changes: +ALBU90OI INH; +FLUT1DIS5 INH; +GLIP5 PO; +HYDHCL25 PO; +XARELTO20 MG PO; +[UNRECOGNIZED DRUG - CODE] PO
[2020-07-10 17:30] LABS: Base Excess Venous 0.7 mmol/L; Bicarbonate Venous 25.6 mmol/L (24.0-30.0); PCO2 Venous 33.3 mmHg (38-42); PO2 Venous 99.8 mmHg (38-42); pH Blood Venous 7.47 (7.34-7.37)
[2020-07-10 17:30] LABS: Chloride (POC) 101 mmol/L (98-108); Creatinine (POC) 1.1 mg/dL (0.8-1.3); Glucose (ISTAT POC) 320 mg/dL (70-99); Hemoglobin (POC) 15.3 g/dL (13.5-17.5); Potassium (POC) 4.5 mmol/L (3.5-5.5); Sodium (POC) 136 mmol/L (135-148); Total CO2 (POC) 27 mmol/L (21-32)
[2020-07-10 17:33] LABS: BASOPHILS ABSOLUTE AUTO 0.02 K/mm3 (0.00-0.23); BASOPHILS PERCENT AUTO 0 % (0-2); EOSINOPHILS ABSOLUTE AUTO 0.03 K/mm3 (0.00-0.68); EOSINOPHILS PERCENT AUTO 0 % (0-6); Hematocrit 43.3 % (37.0-53.0); Hemoglobin 14.7 g/dL (13.5-17.5); IMMATURE GRAN ABSOLUTE AUTO 0.02 K/mm3 (0.00-0.10); IMMATURE GRAN PERCENT AUTO 0 % (0-1); LYMPHOCYTES ABSOLUTE AUTO 1.03 K/mm3 (0.84-5.20); LYMPHOCYTES PERCENT AUTO 13 % (21-46); MONOCYTES ABSOLUTE AUTO 0.41 K/mm3 (0.16-1.47); MONOCYTES PERCENT AUTO 5 % (4-13); Mean Corpuscular HGB 29.5 pg (26.0-34.0); Mean Corpuscular HGB Conc 33.9 g/dL (31.5-36.5); Mean Corpuscular Volume 87 fL (80-100); Mean Platelet Volume 10.5 fL (9.1-12.4); NEUTROPHILS ABSOLUTE AUTO 6.31 K/mm3 (1.96-9.15); NEUTROPHILS PERCENT AUTO 81 % (41-73); Platelet Count 217 K/mm3 (150-400); RDW Coefficient Variation 12.5 % (11.7-14.2); RDW Standard Deviation 39.6 fL (35.1-46.3); Red Blood Cell Count 4.98 M/mm3 (4.30-5.90); White Blood Cell Count 7.82 K/mm3 (4.00-11.30)
[2020-07-10 17:59] LABS: Alanine Aminotransfer (ALT/SGP 49 U/L (12-78); Albumin, Blood 3.8 g/dL (3.4-5.0); Alk Phos 69 U/L (50-136); Anion Gap 6 mmol/L (6-16); Aspartate Aminotrans (AST/SGOT 20 U/L (12-37); Bilirubin, Total 0.5 mg/dL (0.1-1.0); Blood Urea Nitrogen 8 mg/dL (8-24); Bun/Creatinine Ratio 7.9 (12.0-20.0); CO2, Blood 27 mmol/L (21-32); Calcium, Blood 9.1 mg/dL (8.5-10.1); Chloride, Blood 105 mmol/L (98-108); Creatinine, Blood 1.01 mg/dL (0.60-1.20); Globulin, Blood 3.9 g/dL (2.2-4.0); Glomerular Filtration Rate >60 (60-); Glucose, Blood 316 mg/dL (70-99); Potassium, Blood 4.5 mmol/L (3.5-5.5); Sodium, Blood 138 mmol/L (136-145); Total Protein, Blood 7.7 g/dL (6.4-8.2)
[2020-07-10 18:36] LABS: U Amphetamine Screen DETECTED; U Barbituate Screen Not Detected; U Benzodiazapine Screen Not Detected; U Buprenorphine Screen Not Detected; U Cannabinoids Screen Not Detected; U Cocaine Screen Not Detected; U Methadone Screen Not Detected; U Methamphetamine Screen DETECTED; U Opiates Screen Not Detected; U Oxycodone Screen Not Detected; U Phencyclidine Screen Not Detected; U Propoxyphene Screen Not Detected
--- NOTE | 2020-07-11 04:37 | NUR ---
TILT TRAY DRIVER SUMMARY PT ADMITTED FROM ED APPROX [id number], RECEIVED REPORT FROM REZA CARMONA. PT OBTUNDED, RESPONSIVE ONLY TO VOICE AND TOUCH. GARBLED AND INCOMPREHENSIBLE SPEECH. L SIDED WEAKNESS NOTED. PT PLEASANT AND COOPERATIVE TO CARE. PT ABLE TO FOLLOW SIMPLE INSTRUCTIONS WHEN BEING REPOSITIONED OR DURING MONICA CARE. RATLIFF PATENT AND DRAINING. IV LR RUNNING AT ORDERED RATE. PT CALM AND RESTED IN BED AT THIS TIME. TELE SR AT 99BPM PER BOAT OUTFITTING SUPERVISOR. PT NPO. BED AT LOWEST POSITION W/ ALARM ON. CALL LIGHT WITHIN REACH.
--- NOTE | 2020-07-11 18:16 | NUR ---
PT REMAINS DIFFICULT TO AROUSE WHEN HE IS SLEEPING, WHEN AWAKE HE IS ABLE TO FOLLOW SIMPLE DIRECTIONS, SUCH COMB HIS HAIR. LEFT ARM REMAINS FLACID, HE HAS VERY MINIMAL MOVEMENT IN HIS LEFT LEG. SPEECH IS GARBLE AND INCOMPREHENSABLE. PT APPEARS FRUSTRATED AT NOT BEING ABLE TO VERBALLY COMMUNICATE. NO ACUTE CHANGES NOTED THIS SHIFT, WILL CONTINUE TO MONITOR AND REPORT TO ONCOMING RN
--- NOTE | 2020-07-12 05:21 | NUR ---
SHIFT SUMMARY- PT. ALERT WITH GARBLED INCOMPREHENSABLE SPEECH. L SIDED WEAKNESS, UNABLE TO STAND. REPOSTIONED FOR COMFORT AND PRN DURING THE NIGHT, TOLERATES WELL. PT. REQUESTING TO EAT, DISCUSSED WITH PT. NPO STATUS. ALSO POINTING TO HEAD AND MOANING. WHEN ASKED PT. IF HEAD HURT NODDED YES. OBTAINED ORDER FOR TYLENOL SUPP. ATTEMPTED TO ADMINISTER, PT. REFUSED. PT. ASLEEP THE REST OF THE NIGHT, NO APPARENT DISTRESS NOTED. IV FLUIDS DC'D, NO OTHER COMPLAINTS DURING THE NIGHT. CALL LIGHT WITHIN REACH AND SIDE RAILS UPX3. WILL CONT TO MONITOR.
[2020-07-12 05:30] LABS: Hematocrit 39.9 % (37.0-53.0); Hemoglobin 13.5 g/dL (13.5-17.5); Mean Corpuscular HGB 29.2 pg (26.0-34.0); Mean Corpuscular HGB Conc 33.8 g/dL (31.5-36.5); Mean Corpuscular Volume 86 fL (80-100); Mean Platelet Volume 10.6 fL (9.1-12.4); Platelet Count 199 K/mm3 (150-400); RDW Coefficient Variation 12.2 % (11.7-14.2); RDW Standard Deviation 38.4 fL (35.1-46.3); Red Blood Cell Count 4.63 M/mm3 (4.30-5.90); White Blood Cell Count 6.86 K/mm3 (4.00-11.30)
[2020-07-12 05:59] LABS: Anion Gap 9 mmol/L (6-16); Blood Urea Nitrogen 8 mg/dL (8-24); CO2, Blood 25 mmol/L (21-32); Calcium, Blood 8.8 mg/dL (8.5-10.1); Chloride, Blood 105 mmol/L (98-108); Creatinine, Blood 0.89 mg/dL (0.60-1.20); Glomerular Filtration Rate >60 (60-); Glucose, Blood 196 mg/dL (70-99); Potassium, Blood 3.6 mmol/L (3.5-5.5); Sodium, Blood 139 mmol/L (136-145)
--- NOTE | 2020-07-12 17:29 | NUR ---
SUMMARY/DISCHARGE PT HAS BEEN RESTLESS IN BED T/O THE DAY, PT'S FATHER CAME IN TO VISIT, GRANDMOTHER CALLED TO CHECK ON HIM, PT HAS BEEN CONFUSED T/O THE DAY, DOES NOT FOLLOW COMMANDS AND WORDS ARE GARBLED, L SIDE FLACCID, PT PULLS OFF HIS OXYGEN FREQUENTLY, PT/ST WORKED WITH THE PT, STILL NOT SAFE TO EAT, CARE MANAGEMENT HAS BEEN IN TO SEE THE PT AND SPEAK WITH THE FAMILY TO WORK ON A SAFE DISCHARGE PLAN, VSS, WILL CONT TO MONITOR
--- NOTE | 2020-07-12 17:33 | NUR ---
SUMMARY PT HAS BEEN RESTLESS IN BED T/O THE DAY, PT'S FATHER HAS BEEN IN TO VISIT, GRANDMOTHER HAS CALLED TO CHECK ON THE HIM, PT REMAINS CONFUSED, DOES NOT FOLLOW COMMANDS AND SPEECH IS GARBLED, PT/ST WORKED WITH THE PT, STILL NOT SAFE TO EAT MEALS, CARE MANAGEMENT HAS BEEN IN THE ROOM TO SPEAK WITH THE FAMILY AND WORK ON A SAFE DISCHARGE PLAN, VSS, WILL CONT TO MONITOR
--- NOTE | 2020-07-13 06:08 | NUR ---
SHIFT SUMMARY- NO ACUTE EVENTS OVERNIGHT. PT. ASLEEP MOST OF THE NIGHT, SPEECH GARBLED AND DIFFICULT TO UNDERSTAND. HAD NO COMPLAINTS. RATLIFF CATHETER PATENT AND DRAINING, VSS. CALL LIGHT WITHIN REACH AND SIDE RAILS UPX3. WILL CONT TO MONITOR.
--- NOTE | 2020-07-13 17:09 | NUR ---
SUMMARY PT RESTING QUIETLY IN BED, RESTLESS OFF AND ON, MOANS AND GROANS FREQUENTLY, MOVES HIS R ARM AND R LEG FREELY, NO MOVEMENT IN THE L ARM OR LEG, NO VISITORS OR PHONE CALLS FROM FAMILY TODAY, PT HAD ANOTHER CT SCAN DONE TODAY, VSS, NO ACUTE CHANGES, WILL CONT TO MONITOR
[2020-07-14 05:18] LABS: Hematocrit 43.2 % (37.0-53.0); Hemoglobin 14.9 g/dL (13.5-17.5); Mean Corpuscular HGB 29.3 pg (26.0-34.0); Mean Corpuscular HGB Conc 34.5 g/dL (31.5-36.5); Mean Corpuscular Volume 85 fL (80-100); Mean Platelet Volume 10.7 fL (9.1-12.4); Platelet Count 206 K/mm3 (150-400); RDW Coefficient Variation 12.2 % (11.7-14.2); RDW Standard Deviation 37.5 fL (35.1-46.3); Red Blood Cell Count 5.09 M/mm3 (4.30-5.90); White Blood Cell Count 7.66 K/mm3 (4.00-11.30)
[2020-07-14 05:39] LABS: Anion Gap 10 mmol/L (6-16); Blood Urea Nitrogen 18 mg/dL (8-24); Bun/Creatinine Ratio 16.4 (12.0-20.0); CO2, Blood 21 mmol/L (21-32); Calcium, Blood 8.9 mg/dL (8.5-10.1); Chloride, Blood 108 mmol/L (98-108); Glomerular Filtration Rate >60 (60-); Glucose, Blood 199 mg/dL (70-99); Potassium, Blood 4.1 mmol/L (3.5-5.5); Sodium, Blood 139 mmol/L (136-145)
--- NOTE | 2020-07-14 06:12 | NUR ---
SHIFT SUMMARY PT IS A 49 Y/O MALE, ADMITTED FOR A CVA. HE IS A&O X SELF, VERY GARBLED SPEECH, NPO DUE TO SWALLOWING ISSUES. NO S/S OF PAIN OR NAUSEA. PT'S O2 WAS INCREASED TO 15L VIA NC BY RESPIRATORY CARE AFTER SATS WERE FOUND IN THE LOW 80S, THOUGH PT OFTEN TAKES HIS O2 CANNULA OFF OF HIS FACE. HR WAS ELEVATED, ST IN THE 110-120S PER TELE COMIC WRITER. VITAL SIGNS OTHERWISE STABLE. NO OTHER ACUTE CHANGES IN PT CONDITION NOTED DURING THE NIGHT. WILL CONTINUE TO MONITOR AND TREAT PER EMAR UNTIL HAND OFF TO DAY SHIFT RN.
--- NOTE | 2020-07-14 18:46 | NUR ---
PT REMAINS BED BOUND. PT IS ORIENTED TO SELF, PLACE AND SITUATION. HARD TO UNDERSTAND PT HE MUMBLES AND DOES NOT HAVE CTL OVER TONGUE. PT REFUSED HIS NG TUBE AND STATES "I DO NOT WANT ANYTHING IN MY NOSE, IM ANGRY" PT ALSO CONT. TO REQUEST ORAL FOOD AND FLUID. WE CONT TO EXPLAIN THAT IS IS NOT SAFE OF YET TO CONSUME ORALS. SPOKE WITH MD DENNIS PT NG REFUSAL AND WAS TOLD TO HOLD NG AND ALLOW FOR IV FLUIDS OVERNIGHT WE WILL REASSESS IN THE MORNING FOR NG COOPERATION. IV RUNNING AT 75/H. L AC IV SALINE LOCKED. BED IN LOW POSITION, CALL LIGHT WITHIN REACH, STAFF WILL CONT. TO MONITOR.
--- NOTE | 2020-07-15 06:14 | NUR ---
SHIFT SUMMARY PATIENT ALERT BUT UNABLE TO SPEAK COHERENTLY. HE HAD NO SIGNS OF BEING IN PAIN. DOES NOT LIKE TO KEEP HIS OXYGEN ON. SLEPT WELL OVERNIGHT. IVS PATENT AND FLUSHED. BED IN LOWEST POSITION WITH WHEELS LOCKED AND ALARM ON. CALL LIGHT WITHIN REACH. REPORT GIVEN TO ONCOMING RN.
[2020-07-15 09:03] LABS: BASOPHILS ABSOLUTE AUTO 0.03 K/mm3 (0.00-0.23); BASOPHILS PERCENT AUTO 1 % (0-2); EOSINOPHILS PERCENT AUTO 2 % (0-6); Hematocrit 42.6 % (37.0-53.0); Hemoglobin 14.3 g/dL (13.5-17.5); IMMATURE GRAN ABSOLUTE AUTO 0.01 K/mm3 (0.00-0.10); IMMATURE GRAN PERCENT AUTO 0 % (0-1); LYMPHOCYTES ABSOLUTE AUTO 1.52 K/mm3 (0.84-5.20); LYMPHOCYTES PERCENT AUTO 24 % (21-46); MONOCYTES ABSOLUTE AUTO 0.53 K/mm3 (0.16-1.47); MONOCYTES PERCENT AUTO 8 % (4-13); Mean Corpuscular HGB 29.4 pg (26.0-34.0); Mean Corpuscular HGB Conc 33.6 g/dL (31.5-36.5); Mean Corpuscular Volume 88 fL (80-100); NEUTROPHILS ABSOLUTE AUTO 4.15 K/mm3 (1.96-9.15); NEUTROPHILS PERCENT AUTO 65 % (41-73); Platelet Count 189 K/mm3 (150-400); RDW Coefficient Variation 12.3 % (11.7-14.2); RDW Standard Deviation 39.2 fL (35.1-46.3); Red Blood Cell Count 4.87 M/mm3 (4.30-5.90); White Blood Cell Count 6.34 K/mm3 (4.00-11.30)
[2020-07-15 09:20] LABS: Anion Gap 6 mmol/L (6-16); Blood Urea Nitrogen 21 mg/dL (8-24); CO2, Blood 25 mmol/L (21-32); Calcium, Blood 8.5 mg/dL (8.5-10.1); Chloride, Blood 112 mmol/L (98-108); Creatinine, Blood 1.05 mg/dL (0.60-1.20); Glomerular Filtration Rate >60 (60-); Glucose, Blood 193 mg/dL (70-99); Potassium, Blood 4.1 mmol/L (3.5-5.5); Sodium, Blood 143 mmol/L (136-145)
--- NOTE | 2020-07-15 12:01 | NUR ---
DECREASED LOC PT WOULD NOT WAKE UP THIS AM WHEN THIS RN IN TO ASSESS PT. STERNAL RUB WAS DONE AND PT DID NOT GRIMACE OR MOVE. VITALS WERE STABLE. HOLLOCK MAKER WAS IN AFTER THIS RN AND PT AWAKE, YELLING AT THE STAFF. PT CONTINUED TO TALK TO SELF WHEN NO ONE IN ROOM. DIFFICULT TO UNDERSTAND. ONCE DR. TERAN IN TO SEE PT, PT ASLEEP AGAIN AND WOULD NOT WAKE UP. PT STILL SLEEPING AT THIS TIME. OXYGEN LEVEL DOWN FROM 15L TO 8L VIA OXYMIZER WIT OXYGEN SATURATION 93-95%. WILL CONTINUE TO MONITOR. CALL LIGHT IN REACH. BED ALARM ON FOR SAFETY.
--- NOTE | 2020-07-15 18:19 | NUR ---
SHIFT SUMMARY PT HAS BEEN SLEEPING A LOT OF THE SHIFT BUT DOES WAKE UP AND TRIES TO TALK TO STAFF. PT CONTINUOUSLY REQUESTING TO DRINK AND EAT WHEN AWAKE. STATES "I'M PISSED OFF." WHEN STAFF EXPLAIN TO HIM THAT HE IS UNABLE TO HAVE FOOD AND LIQUIDS AT THIS TIME. PT REFUSING TO ALLOW DOBHOFF TO BE PLACED FOR FEEDING. PT ALSO REFUSING TO ALLOW THIS RN TO DO ORAL CARE. EDUCATED PT ON IMPORTANCE OF ORAL CARE BUT PT STILL REFUSES. NO ACUTE CHANGES AT THIS TIME. PT CONTINUES TO BE ON 8L VIA OXYMIZER, SATING 93-95%. WILL CONTINUE TO MONITOR. BED ALARM ON FOR SAFETY.
--- NOTE | 2020-07-16 04:40 | NUR ---
CONTACT LENS POLISHER SUMMARY PT A&O TO SELF ONLY, PLEASANTLY CONFUSED, INCOMPREHENSIBLE AND GARBLED SPEECH. NO S/S OF PAIN OR ANY DISCOMFORT THIS SHIFT. PT CONT TO REQUEST FOR FOOD/DRINK, EXPLAINED TO PT THAT HE IS CURRENTLY NPO STATUS. ORAL CARE PROVIDED. PT CONT ON 8LPM O2 VIA OXYMIZER, SATS 90-93%. BED AT LOWEST POSITION W/ ALARM ON. CALL LIGHT WITHIN REACH.
[2020-07-16 05:49] LABS: Phosphorus, Blood 3.2 mg/dL (2.5-4.9)
--- NOTE | 2020-07-16 17:59 | NUR ---
SHIFT SUMMARY PT HAS BEEN AWAKE OFF AND ON THIS SHIFT. PT MORE COOPERATIVE TODAY. PT ALLOWED THIS RN TO DO ORAL CARE X2 THIS SHIFT. PT WAS AGREEABLE TO A BED BATH AND TOLERATED IT. CONTINUES TO BE ON CLINIMIX WITH LIPIDS. RATLIFF D/C'D THIS EVENING PER DR. TERAN'S ORDER. PT STILL DIFFICULT TO UNDERSTAND. PT TRIES TO TALK WITH STAFF BUT SPEECH IS VERY GARBLED. NO ACUTE CHANGES AT THIS TIME. CALL LIGHT IN REACH. BED ALARM ON FOR SAFETY. WILL CONTINUE TO MONITOR AND REPORT TO ONCOMING RN.
--- NOTE | 2020-07-17 05:01 | NUR ---
SHIFT SUMMARY NO ACUTE CHANGES THIS SHIFT, NO C/O PAIN/DISCOMFORT, SPEECH VERY GARBLED- COMMUNICATES WELL W/WHITE BOARD, CONTINUES TO REQUEST FOOD/DRINK, Q2 REPOS T/O SHIFT, INCONT (2-3 PER CHANGE), SLEPT T/O THE NIGHT & SLEEPING AT THIS TIME, CALL LIGHT IN REACH, WILL CONT TO MONITOR UNTIL REPORT GIVEN TO DAY RN.
[2020-07-17 05:20] LABS: Phosphorus, Blood 4.5 mg/dL (2.5-4.9); Triglycerides 336 mg/dL (30-160)
--- NOTE | 2020-07-17 17:42 | NUR ---
SHIFT SUMMARY PATIENT OBTUNDED THROUGHOUT THIS SHIFT. DR NOTIFIED THIS AM AND AGAIN THIS EVENING OF PATIENT'S CONDITION. PATIENT UNRESPONSIVE TO STERNAL RUB THIS AM AND AGAIN THIS AFTERNOON. DR NOTIFIED OF THE PATIENT'S CONTINUED CONDITION, PATIENT'S FAMILY CONTACTED AND PATIENT CODE STATUS IS GOING TO BE CHANGED TO DNR. PATIENT TURNED AND CHANGED REGULARLY THROUGHOUT THIS SHIFT. PATIENT SUCTIONED MULTIPLE TIMES FOR SECRETIONS WITH ORAL CARE PROVIDED THIS SHIFT.
--- NOTE | 2020-07-17 20:05 | NUR ---
RESTING QUIETLY WHEN OBSERVED AT SHIFT CHANGE. NON RESPONSIVE TO VERBAL OR TACTILE STIMULI. CLINIMIX AND LIPS INFUSING - SEE MAR FOR DETAILS. CALL LIGHT IN REACH. HOB AT APPROX 30 DEGREES.
--- NOTE | 2020-07-18 03:27 | NUR ---
SHIFT SUMMARY REMAINS OBTUNDED. NON RESPONSIVE TO BOTH VERBAL AND TACTILE STIMULI. CLINIMIX CONTINUES AT 100 ML/HR FOR NUTRITION. ACCU CHECKS REMAIN ELEVATED (SEE DOCUMENTATION) AND MD WAS NOTIFIED WHEN BLOOD GLUCOSE LEVEL REACHED 365. COVERAGE GIVEN. INCONT AND CHANGED. REPOSITIONED FOR COMFORT. CALL LIGHT IN REACH.
--- NOTE | 2020-07-18 08:00 | NUR ---
PT VSS EXCEPT LOW O2. ON 15 L OXIMIZER. MOTION PICTURE EQUIPMENT MACHINIST MOVED TO NON-REBREATHER. 15 L. O2 MAINTAINING 85-89%. CALLED DR TERAN. PT MOVED TO COMFORT CARE ORDERS TO FOLLOW.
--- NOTE | 2020-07-18 11:44 | NUR ---
PT NOW COMFORT CARE. IS NONRESPONDANT EVEN TO STERNAL RUB. HAS BEEN SO THIS AND LAST SHIFT. RESP EASY UNLABORED. MOVNG TO OXIMIZER AGAIN FOR COMFORT. STILL GURGLEY. BUT TOO DEEP FOR SUCTION TO CLEAR. BED IN LOW POSITION, CALLLITE IN REACH, BED ALARM ON FOR SAFETY
--- NOTE | 2020-07-18 12:50 | NUR ---
PT IS CURRENTLY LYING IN BED, EYES CLOSE. He occasionally has a mild grimace that returns quickly to flat affect, no response. All extremities appear flaccid. However, resp are 44 per minute, slightly labored, and noisy,moist breathing. Scopalamine patch in place behind pt's R ear. Administered 10mg roxanol sublingual. Respirations decreased to 40. Pt's nurse Joaquin will monitor pt for change in respirations, which has decreased to 36/minute.
--- NOTE | 2020-07-18 14:23 | NUR ---
1300 PT STILL GURGLEY. SUCTIONED AGAIN. NOT REALLY IMPROVED. BED IN LOW POSITION, CHARANJIT LLITE IN REACH, BED ALARM ON FOR SAFETY
--- NOTE | 2020-07-18 16:23 | NUR ---
PT STILL GURGLEY BREATHING, SUCTIONED, ATROPINE GIVEN.
--- NOTE | 2020-07-18 17:02 | NUR ---
PT BREATHING 40/MIN. ADMIN SUCTION FOR GURGLING AND MORPHINE. PT RESP NOW 40
--- NOTE | 2020-07-18 17:41 | NUR ---
PT HAS BEEN NONRESPONDANT TODAY. TRIED SUCTIONING SEVERAL TIMES. SOES NOT REALLY HELP MUCH. QUITE DULCE MARIA. IS NOW COMFORT CARE SINCE THIS AM. RT WAS IN TO SUCTION SOME DEEPER, DID HELP SOME. SOME IMPROVEMENT. STILL BREATHING ABOUT 40 RESP PER MIN. MORPHINE DOES NOT HELP MUCH. PT HEAD OF BED UP. PT NOT RESPONDING OR AWAKENING TO SUCTION. BED IN LOW POSITION, CALL LITE IN REACH, BED ALARM ON FOR SAFETY
--- NOTE | 2020-07-18 18:17 | NUR ---
PT GURGLEY, SUCTIONED AND REPOSITIONED . ATROPINE DROPS ADMIN
--- NOTE | 2020-07-18 23:41 | NUR ---
PATIENT AT 2308 07/18/20, CONFIRMED WITH MAICOL JOSE RN. PT APPEARED COMFORTABLE IN BED W/ NO S/S OF PAIN OR DISCOMFORT FROM THE BEGINNING OF SHIFT. PT WAS GURGLEY, SUCTIONED PRN, ATROPINE DROPS ADMINISTERED. NOTIFIED HOSPITALIST JAYASHREE OF PT's PASSING. ALSO NOTIFIED PATIENT'S FATHER CLARISA VIA PHONE CALL, OFFERED PASTORAL CARE AND SUPPORT. PT'S FATHER VERBALIZED THAT HE WILL AIRFREIGHT LOADING SUPERVISOR PATIENT'S BELONGINGS IN AM, AND WILL VISIT PATIENT AT HOME IN THE MORNING. PATIENT'S FATHER CHOSE [facility] IN [facility] FOR SERVICES. POST MORTEM CARE PROVIDED.
--- NOTE | 2020-07-19 01:28 | NUR ---
ATTEMPTED TO NOTIFY PATIENT'S FATHER THAT PATIENT TRANSFERRED TO [facility]. NO VOICEMAIL AVAILABLE.
[2020-07-19 19:07] LABS: ACT. PRT C RESIST W/FV DEFIC. 2.5 ratio (.); APTT 25.1 sec (.); DRVVT CONFIRM SECONDS 38.8 sec (.); DRVVT RATIO 1.4 ratio (.); DRVVT SCREEN SECONDS 61.9 sec (.); FACTOR VIII ACTIVITY 202 % (.); HEXAGONAL PHOSPHOLIPID NEUTRAL 1 sec (.); HOMOCYSTEINE 10.4 umol/L (.); PRT C ACTIVITY (CHROMOGENIC) 116 % (.)
== END 2020-07-18 23:08 | DRG 64 ==
LOC: ER 17:06 → MEDS 19:27 → ER 21:19 → MEDS 21:29
PROVIDERS: Emergency Medicine; Internal Medicine; ADMIT Internal Medicine
DX: I63.541 Cerebral infarction due to unspecified occlusion or stenosis of right cerebellar artery (principal); G92 Toxic encephalopathy; G81.94 Hemiplegia, unspecified affecting left nondominant side; F20.0 Paranoid schizophrenia; R47.1 Dysarthria and anarthria; R13.10 Dysphagia, unspecified; Z86.711 Personal history of pulmonary embolism; Z86.718 Personal history of other venous thrombosis and embolism; I65.21 Occlusion and stenosis of right carotid artery; E11.9 Type 2 diabetes mellitus without complications; F31.9 Bipolar disorder, unspecified; F43.10 Post-traumatic stress disorder, unspecified; Z98.890 Other specified postprocedural states; R40.2431 Glasgow coma scale score 3-8, in the field [EMT or ambulance]; Z88.5 Allergy status to narcotic agent; Z88.8 Allergy status to other drugs, medicaments and biological substances; Z79.899 Other long term (current) drug therapy; Z79.84 Long term (current) use of oral hypoglycemic drugs; F15.10 Other stimulant abuse, uncomplicated
CPT/HCPCS: 31720; 36415; 51702; 70450; 70496; 70498; 71045; 80047; 80048; 80053; 81240; 82330; 82803; 82947; 83090; 83735; 84100; 84443; 84478; 85014; 85025; 85027; 85240; 85300; 85303; 85306; 85307; 85613; 85730; 85732; 86146; 86147; 92610; 93005; 93010; 93308; 93321; 94640; 94760; 97110; 97112; 97163; 97166; 97530; 97535; 99285-25; A9270; J7030; J7120; Q9967